=== PATIENT | female | born 1960 | race Caucasian/White ===

== ENCOUNTER 2017-10-29 12:59 | Inpatient (IN) | payer MEDICARE, OTHER ==
[~2017-10-29] VITALS: Ht 154.9 cm; Wt 113.2 kg
[~2017-10-29 12:59] MED LIST: LATU80TA PO; PALI117P IM
[2017-10-29 13:00] VITALS: BP 146/80; PULSE 75; RESP 18; TEMP 98.4; O2SAT 98
--- NOTE | 2017-10-29 13:21 | PD ---
HPI Chief Complaint: Psychiatric Symptoms Time Seen by Provider: 13:08 Travel History International Travel<30 days: No Contact w/Intl Traveler<30days: No Traveled to known affect area: No History of Present Illness HPI This is a 57-year-old female who presents with her son for evaluation. Reportedly she has a history of schizophrenia. Over the past several months she has been using her Geodon only intermittently. She reports that she no longer wants to take it because she feels fine and does not believe that she has any illness. The son and his have been concerned about her behavior over the past few weeks. They report that she has been acting bizarre, paranoid , impulsive, wandering out of the house randomly, unusual euphoric mood. The patient sees a psychiatrist and [place]. The patient reports that she is willing to stay for psychiatric evaluation but declines medication. The patient denies any acute medical complaints. She reports that she had an injury to her back in the 90s and has had occasional muscle spasms since then but none currently. No other complaints. [facility] Past Medical History Anxiety: No Depression: No Cardiovascular Problems: No Endocrine: No Genitourinary: No Immune Disorder: No Musculoskeletal: No Neurologic: No Psychiatric: Yes Reproductive: No Respiratory: No Social History Tobacco Use: No Substance Use: No Allergies-Medications (Allergen,Severity, Reaction): Coded Allergies: No Known Allergies (Unverified Adverse Reaction, Unknown, 10/29/17) Reported Meds & Prescriptions Reported Meds & Active Scripts Active Reported Spironolactone 25 Mg Tab 25 Mg PO DAILY Metformin (Metformin HCl) 500 Mg Tab 500 Mg PO BID Lasix (Furosemide) 40 Mg Tab 40 Mg PO BID Lovastatin 20 Mg Tab 20 Mg PO DAILY Levothyroxine (Levothyroxine Sodium) 75 Mcg Tab 75 Mcg PO DAILY Metoprolol Succinate ER 24 HR (Metoprolol Succinate) 25 Mg Tab 25 Mg PO DAILY Trazodone (Trazodone HCl) 50 Mg Tab 50 Mg PO HS Geodon (Ziprasidone) 80 Mg Cap 80 Mg PO BID Review of Systems Except as stated in HPI: all other systems reviewed are Neg Physical Exam Narrative GENERAL: Well-developed well-nourished female in no acute distress SKIN: Warm and dry. HEAD: Atraumatic. Normocephalic. EYES: Pupils equal and round. No scleral icterus. No injection or drainage. ENT: No nasal bleeding or discharge. Mucous membranes pink and moist. NECK: Trachea midline. No JVD. CARDIOVASCULAR: Regular rate and rhythm. No murmur appreciated. RESPIRATORY: No accessory muscle use. Clear to auscultation. Breath sounds equal bilaterally. GASTROINTESTINAL: Abdomen soft, non-tender, nondistended. Hepatic and splenic margins not palpable. MUSCULOSKELETAL: No obvious deformities. No clubbing. No cyanosis. No edema. NEUROLOGICAL: Awake and alert. No obvious cranial nerve deficits. Motor grossly within normal limits. Normal speech. PSYCHIATRIC: Hyperthymic mood; insight and judgment appear limited. Data Data Last Documented VS Vital Signs Date Time Temp Pulse Resp B/P (MAP) Pulse Ox O2 Delivery O2 Flow Rate FiO2 10/29/17 13:00 98.4 75 18 146/80 (102) 98 Orders Orders Complete Blood Count With Diff (10/29/17 13:19) Comprehensive Metabolic Panel (10/29/17 13:19) Psych Screen (10/29/17 13:19) Drug Screen, Random Urine (10/29/17 13:19) Alcohol (Ethanol) (10/29/17 13:19) Labs Laboratory Tests Test 10/29/17 13:55 10/29/17 14:00 White Blood Count 14.2 TH/MM3 Red Blood Count 4.01 MIL/MM3 Hemoglobin 12.9 GM/DL Hematocrit 37.8 % Mean Corpuscular Volume 94.3 FL Mean Corpuscular Hemoglobin 32.2 PG Mean Corpuscular Hemoglobin Concent 34.2 % Red Cell Distribution Width 13.1 % Platelet Count 310 TH/MM3 Mean Platelet Volume 7.9 FL Neutrophils (%) (Auto) 69.6 % Lymphocytes (%) (Auto) 23.4 % Monocytes (%) (Auto) 5.0 % Eosinophils (%) (Auto) 1.6 % Basophils (%) (Auto) 0.4 % Neutrophils # (Auto) 9.9 TH/MM3 Lymphocytes # (Auto) 3.3 TH/MM3 Monocytes # (Auto) 0.7 TH/MM3 Eosinophils # (Auto) 0.2 TH/MM3 Basophils # (Auto) 0.1 TH/MM3 CBC Comment DIFF FINAL Differential Comment Blood Urea Nitrogen 14 MG/DL Creatinine 0.94 MG/DL Random Glucose 144 MG/DL Total Protein 7.4 GM/DL Albumin 3.1 GM/DL Calcium Level 8.5 MG/DL Alkaline Phosphatase 94 U/L Aspartate Amino Transf (AST/SGOT) 27 U/L Alanine Aminotransferase (ALT/SGPT) 36 U/L Total Bilirubin 0.3 MG/DL Sodium Level 137 MEQ/L Potassium Level 4.2 MEQ/L Chloride Level 102 MEQ/L Carbon Dioxide Level 28.1 MEQ/L Anion Gap 7 MEQ/L Estimat Glomerular Filtration Rate 61 ML/MIN Ethyl Alcohol Level LESS THAN 3 MG/DL Urine Opiates Screen NEG Urine Barbiturates Screen NEG Urine Amphetamines Screen NEG Urine Benzodiazepines Screen NEG Urine Cocaine Screen NEG Urine Cannabinoids Screen NEG MDM Medical Decision Making Medical Screen Exam Complete: Yes Emergency Medical Condition: Yes Medical Record Reviewed: Yes Differential Diagnosis Schizophrenia, medication noncompliance, acute psychosis, Narrative Course The patient is agreeable to psychiatric evaluation but she declines medication at this time. Mental health screening discussed with the patient. Psychiatric screen ordered. The patient is medically cleared. Diagnosis Primary Impression: Noncompliance with medication regimen Additional Impression: Schizophrenia Jaren Waggoner Oct 29, 2017 13:21
[2017-10-29] MEDS ORDERED: GEOD80CA PO (13:33)
[2017-10-29] MEDS ORDERED: SPIR25TA PO (13:49)
[2017-10-29] MEDS ORDERED: FURO1TAB60 PO (13:49)
[2017-10-29] MEDS ORDERED: METF500T PO (13:49)
[2017-10-29] MEDS ORDERED: TRAZ50TA12 PO (13:49)
[2017-10-29] MEDS ORDERED: LOVA20TA PO (13:49)
[2017-10-29] MEDS ORDERED: LEVO75TA3 PO (13:49)
[2017-10-29] MEDS ORDERED: METO1TAB42 PO (13:49)
[2017-10-29 14:10] LABS: AUTOMATED NEUTROPHIL # 9.9 TH/MM3 (1.8-7.7); BASOPHIL # 0.1 TH/MM3 (0-0.2); BASOPHIL % 0.4 % (0.0-2.0); EOSINOPHIL # 0.2 TH/MM3 (0-0.4); EOSINOPHIL % 1.6 % (0.0-4.0); HEMATOCRIT 37.8 % (35.0-46.0); HEMOGLOBIN 12.9 GM/DL (11.6-15.3); LYMPH % 23.4 % (9.0-44.0); LYMPHOCYTE # 3.3 TH/MM3 (1.0-4.8); MEAN CELL VOLUME 94.3 FL (80.0-100.0); MEAN CORPUSCULAR HEMOGLOBIN 32.2 PG (27.0-34.0); MEAN CORPUSCULAR HGB CONC 34.2 % (32.0-36.0); MEAN PLATELET VOLUME 7.9 FL (7.0-11.0); MONOCYTE # 0.7 TH/MM3 (0-0.9); NEUT % 69.6 % (16.0-70.0); PLATELET COUNT 310 TH/MM3 (150-450); RED BLOOD COUNT 4.01 MIL/MM3 (4.00-5.30); RED CELL DISTRIBUTION WIDTH 13.1 % (11.6-17.2); WHITE BLOOD COUNT 14.2 TH/MM3 (4.0-11.0)
[2017-10-29 14:28] LABS: ALKALINE PHOSPHATASE 94 U/L (45-117); TOTAL BILIRUBIN ADULT 0.3 MG/DL (0.2-1.0); TOTAL PROTEIN 7.4 GM/DL (6.4-8.2)
[2017-10-29 14:30] LABS: ALBUMIN 3.1 GM/DL (3.4-5.0); ALT (GPT) 36 U/L (10-53); BICARBONATE 28.1 MEQ/L (21.0-32.0); BLOOD UREA NITROGEN 14 MG/DL (7-18); CALCIUM 8.5 MG/DL (8.5-10.1); CHLORIDE 102 MEQ/L (98-107); CREATININE 0.94 MG/DL (0.50-1.00); GLOMERULAR FILTRATION RATE 61 ML/MIN (>89); GLUCOSE,RANDOM 144 MG/DL (74-106); SODIUM (NA) 137 MEQ/L (136-145)
[2017-10-29 14:31] LABS: AST (GOT) 27 U/L (15-37)
[2017-10-29] MEDS ORDERED: diphenhydrAMINE HCL 50 MG/ML VIAL IM PRN (19:45)
[2017-10-29] MEDS ORDERED: LORazepam 1 MG TAB PO PRN (19:45)
[2017-10-29] MEDS ORDERED: MAGNESIUM HYDROXIDE SUSP 30 ML CUP PO PRN (19:45)
[2017-10-29] MEDS ORDERED: ACETAMINOPHEN 325 MG TAB PO PRN (19:45)
[2017-10-29] MEDS ORDERED: ALUMINUM/MAGNESIUM/SIMETH 30 ML CUP PO PRN (19:45)
[2017-10-29] MEDS ORDERED: LORazepam 2 MG/ML VIAL IM PRN (19:45)
[2017-10-29] MEDS: ZIPRASIDONE HCL 80 MG CAP PO SCH (21:43)
[2017-10-29] MEDS: traZODone HCL 50 MG TAB PO SCH (21:43)
[2017-10-29] MEDS: metFORMIN HCL 500 MG TAB PO SCH (21:43)
[2017-10-29] MEDS: FUROSEMIDE 40 MG TAB PO SCH (21:43)
[2017-10-29 22:38] VITALS: BP 157/82; PULSE 83; RESP 18; TEMP 97.5; O2SAT 95
[2017-10-30] MEDS: LEVOTHYROXINE SODIUM 75 MCG TAB PO SCH (05:39)
[2017-10-30 05:44] VITALS: BP 116/66; PULSE 86; RESP 18; TEMP 97
[2017-10-30] MEDS: metFORMIN HCL 500 MG TAB PO SCH ×2 (09:24→17:33)
[2017-10-30] MEDS: FUROSEMIDE 40 MG TAB PO SCH (09:24)
[2017-10-30] MEDS: ZIPRASIDONE HCL 80 MG CAP PO SCH ×2 (09:24→20:34)
[2017-10-30] MEDS: PRAVASTATIN SOD 20 MG TAB PO SCH (09:26)
[2017-10-30] MEDS: SPIRONOLACTONE 25 MG TAB PO SCH (09:26)
[2017-10-30] MEDS: METOPROLOL SUCCINATE 25 MG EXTENDED RELEASE TAB PO SCH (09:26)
[2017-10-30 09:35] LABS: BICARBONATE 27.5 MEQ/L (21.0-32.0); BLOOD UREA NITROGEN 15 MG/DL (7-18); CALCIUM 8.6 MG/DL (8.5-10.1); CHLORIDE 99 MEQ/L (98-107); CREATININE 1.01 MG/DL (0.50-1.00); GLOMERULAR FILTRATION RATE 56 ML/MIN (>89); GLUCOSE,RANDOM 156 MG/DL (74-106); SODIUM (NA) 137 MEQ/L (136-145)
[2017-10-30 09:37] LABS: CHOLESTEROL 184 MG/DL (120-200); TRIGLYCERIDES 147 MG/DL (42-150)
[2017-10-30 09:41] LABS: CHOLESTEROL/ HDL RATIO 3.43 RATIO; HDL CHOLESTEROL 53.6 MG/DL (40.0-60.0); LDL CHOLESTEROL 101 MG/DL (0-99)
[2017-10-30 10:17] LABS: HEMOGLOBIN A1C 7.1 % (4.3-6.0)
[2017-10-30] MEDS: ARIPiprazole 5 MG TAB PO SCH (11:30)
[2017-10-30] MEDS ORDERED: DEXTROSE 50% IN WATER 50 ML VIAL(D50) IV PUSH PRN (11:30)
[2017-10-30] MEDS ORDERED: GLUCAGON 1 MG/ML VIAL OTHER PRN (11:30)
--- NOTE | 2017-10-30 11:58 | MH ---
cc: NAVIN THOMPSON DATE OF ADMISSION: 10/29/2017 ADMISSION DIAGNOSIS 1. Schizoaffective disorder, bipolar type, F25.0. LEGAL STATUS The patient is presently capacitated to consent for admission and for medications/treatment voluntary status. CHIEF COMPLAINT: Carleen HISTORY OF PRESENT ILLNESS Ms. Chopra is a 57-year-old female with a history of schizoaffective disorder who presented to the emergency department voluntarily with her son for psychiatric evaluation. Reviewing the ED provider notes, I see that the patient has been only intermittently adherent with her Geodon and the son and son's were concerned about the patient's behavior over the last several weeks. Reviewing the electronic medical record, I note the patient was admitted most recently [place] [address] Obrien. The patient is seen and examined with nurse, chart reviewed. Case discussed with nursing staff. On my examination today, the patient presents with elevated mood. She tells me, "I used to see things in my house, things diabolical. I used to throw things away: Shoes, clothes. I have learned not to throw things away. If I see something spiritual, I put my hand over it and pray." Mood is "So good, so happy." Speech is somewhat rapid. The patient says that she feels at peace. She says that she is sleeping more than usual. Some loosening of associations noted. She endorses hearing the word of God but denies any visual hallucinations. She denies any suicidal or homicidal ideation. No depressive symptoms elicited. Besides a zoroastrian preoccupation, no jessie delusional material. Remainder of the psychiatric ROS is negative. No physical complaints at this time. PAST PSYCHIATRIC HISTORY The patient has a history of schizoaffective disorder. She follows with a psychiatric nurse practitioner but missed her October 03 appointment. She takes Geodon and trazodone on an outpatient basis but is only intermittently adherent with these medications. Her most recent psychiatric admission was reportedly here at [place]. She denies a history of suicide attempts. FAMILY HISTORY The patient denies a family history of mental illness. CHEMICAL DEPENDENCY HISTORY The patient denies any abuse of drugs or alcohol. SOCIAL HISTORY The patient reports that she lives alone. She has no pets. She has a son. She is but from her . She has some college education. 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 She denies any access to guns or firearms. She is a Pentocostal. PAST MEDICAL HISTORY 1. Diabetes mellitus 2. Hypertension. MEDICATIONS 1. Lovastatin 20 mg daily. 2. Metoprolol ER 25 mg daily. 3. Spirolactone 25 mg daily. 4. Trazodone 50 mg at bedtime. 5. Geodon 80 mg twice daily. 6. Furosemide 40 mg twice daily. 7. Metformin fifth 500 mg twice daily. 8. Synthroid 75 mcg daily. ALLERGIES No known allergies. REVIEW OF SYSTEMS Except as noted in the HPI, this is negative. PHYSICAL EXAMINATION VITAL SIGNS: Temperature 97, pulse 86, respirations 18, blood pressure 116/66, pulse oximetry 95% on room air when last checked. Physical examination was completed by the ED provider. On my examination today, the patient appears to be in no acute physical distress. No motor abnormalities noted. LABORATORIES REVIEWED CBC reveals leukocytosis with a white blood cell count 14.2. CMP reveals decreased GFR at 56 and hyperglycemia as expected. Urine toxicology negative. Alcohol level undetectable. MENTAL STATUS EXAM The patient is in hospital attire. She is fairly well-groomed and maintaining basic hygiene. She is awake, alert and oriented x4. No motor abnormalities noted. Speech is somewhat rapid and difficult to interrupt. Language and fund of knowledge average. Focus and concentration impaired. Memory grossly intact on clinical exam. Mood is elevated and affect is expansive. Thought process with some loosening of associations. Orthodox preoccupation present. No delusions otherwise. Hearing the word of God but no visual or other hallucinatory material. Denies suicidal or homicidal ideation but it is unclear that she is reliable to contract for safety. Insight and judgment are presently fair at best. ASSESSMENT A 57-year-old female with psychiatric history as detailed above who presents voluntarily for psychiatric admission. On my examination today, the patient appears to be in the manic phase of an underlying schizoaffective disorder. She does admit to non-adherence with her psychotropic medications. Given this issue with non-adherence, I think a long-acting injectable medication is indicated. Given her body habitus and metabolic comorbidities, I think one of the relatively weight neutral antipsychotics would be ideal. I think a trial of Abilify as appropriate and I have discussed the risks, benefits and alternatives with the patient in some detail. She is agreeable to a trial of Abilify. I will plan to admit the patient to the inpatient psychiatric unit for safety, observation and stabilization. PLAN 1. Admit inpatient, voluntary status. 2. Check EKG for QTC, check TSH, check CBC to follow up leukocytosis and check BMP to follow up decreased GFR. 3. Encourage fluids. 4. Check a urinalysis. 5. I will initiate Abilify 5 mg daily for the management of the patient's acute mood episode with plans to titrate to effect and to consider long-acting injectable Abilify Maintena. 6. I will continue the patient's general medical medications except, in light of her decreased GFR, I will hold her furosemide and metformin. 7. I will consult the hospitalist for further management. 8. Accu-Cheks and sliding scale. 9. Ativan as needed for anxiety. 10. Benadryl as needed for EPS. 11. Vitals every shift. 12. Counselor to see. 13. Disposition planning. ESTIMATED LENGTH OF STAY 5-7 days. Navin Thompson DC/AURY /11:09 AM /11:21 AM MTDKristina
[2017-10-30] MEDS: INSULIN ASPART SUPPLEMENTAL SCALE SQ SCH ×3 (12:00→20:37)
[2017-10-30 13:39] LABS: AUTOMATED NEUTROPHIL # 8.7 TH/MM3 (1.8-7.7); BASOPHIL # 0.1 TH/MM3 (0-0.2); BASOPHIL % 0.6 % (0.0-2.0); EOSINOPHIL # 0.2 TH/MM3 (0-0.4); EOSINOPHIL % 1.2 % (0.0-4.0); HEMATOCRIT 43.4 % (35.0-46.0); HEMOGLOBIN 14.4 GM/DL (11.6-15.3); LYMPH % 25.5 % (9.0-44.0); LYMPHOCYTE # 3.3 TH/MM3 (1.0-4.8); MEAN CELL VOLUME 93.9 FL (80.0-100.0); MEAN CORPUSCULAR HEMOGLOBIN 31.1 PG (27.0-34.0); MEAN CORPUSCULAR HGB CONC 33.1 % (32.0-36.0); MEAN PLATELET VOLUME 8.3 FL (7.0-11.0); MONO % 4.8 % (0.0-8.0); MONOCYTE # 0.6 TH/MM3 (0-0.9); NEUT % 67.9 % (16.0-70.0); PLATELET COUNT 297 TH/MM3 (150-450); RED BLOOD COUNT 4.63 MIL/MM3 (4.00-5.30); RED CELL DISTRIBUTION WIDTH 13.3 % (11.6-17.2); WHITE BLOOD COUNT 12.8 TH/MM3 (4.0-11.0)
[2017-10-30 15:02] VITALS: BP 104/59; PULSE 90; RESP 18; TEMP 97.6; O2SAT 96
[2017-10-30] MEDS ORDERED: TORSEMIDE 5 MG TAB PO SCH (18:00)
[2017-10-30] MEDS: traZODone HCL 50 MG TAB PO SCH (20:34)
--- NOTE | 2017-10-30 23:17 | PD.CONS ---
HPI Service [facility] Hospitalists Consult Requested By Psychiatry. Reason for Consult Medical management. Primary Care Physician Unknown Diagnoses: (1) Diabetes mellitus (2) Schizophrenia History of Present Illness Ms. Chopra is a pleasant 57 year old female with a history of schizophrenia who was admitted to psychiatry unit due to paranoid, impulsive, bizarre behavior noticed by her son and his . Patient denies any acute concerns at the time of this interview. Hospitalist service was consulted for medical management and for an input regarding lasix and Metformin use in the background of reduced GFR. Patient is currently in good, cooperative mood. No chest pain, SOB, fever, chills. No changes in bowel or bladder habits. Review of Systems Except as stated in HPI: all other systems reviewed are Neg Past Family Social History Allergies: Coded Allergies: No Known Allergies (Unverified Allergy, Unknown, 10/29/17) Past Medical History Diabetes mellitus Schizophrenia bilateral lower ext edema. Probable CHF Hypothyroidism. Past Surgical History Cholecystectomy C- Section Breast bx Reported Medications Spironolactone 25 Mg Tab 25 Mg PO DAILY Metformin (Metformin HCl) 500 Mg Tab 500 Mg PO BID Lasix (Furosemide) 40 Mg Tab 40 Mg PO BID Lovastatin 20 Mg Tab 20 Mg PO DAILY Levothyroxine (Levothyroxine Sodium) 75 Mcg Tab 75 Mcg PO DAILY Metoprolol Succinate ER 24 HR (Metoprolol Succinate) 25 Mg Tab 25 Mg PO DAILY Trazodone (Trazodone HCl) 50 Mg Tab 50 Mg PO HS Geodon (Ziprasidone) 80 Mg Cap 80 Mg PO BID Family History Mother and father had cancer, does not know specifics. Social History Denies using tobacco, alcohol, illicit drugs. Physical Exam Vital Signs Vital Signs Date Time Temp Pulse Resp B/P (MAP) Pulse Ox O2 Delivery O2 Flow Rate FiO2 10/30/17 15:02 97.6 90 18 104/59 (74) 96 10/30/17 05:44 97.0 86 18 116/66 (83) Physical Exam GENERAL: This is a well-nourished, well-developed patient, in no apparent distress. SKIN: No rashes, ecchymoses or lesions. Warm and dry. HEAD: Atraumatic. Normocephalic. No temporal or scalp tenderness. EYES: Pupils equal round and reactive. No injection or drainage. ENT: Nose without bleeding, purulent drainage or septal hematoma. Airway patent. NECK: Trachea midline. No lymphadenopathy. Supple, nontender, no meningeal signs. CARDIOVASCULAR: Regular rate and rhythm without murmurs, gallops, or rubs. No JVD. RESPIRATORY: Clear to auscultation. Breath sounds equal bilaterally. No wheezes , rales, or rhonchi. GASTROINTESTINAL: Abdomen soft, non-tender, nondistended. No guarding. MUSCULOSKELETAL: Extremities without clubbing, cyanosis. 1+ edema in lower ext. NEUROLOGICAL: Awake and alert. Cranial nerves II through XII intact. No focal neurological deficits. Normal speech. Laboratory Laboratory Tests Test 10/30/17 08:20 White Blood Count 12.8 Red Blood Count 4.63 Hemoglobin 14.4 Hematocrit 43.4 Mean Corpuscular Volume 93.9 Mean Corpuscular Hemoglobin 31.1 Mean Corpuscular Hemoglobin Concent 33.1 Red Cell Distribution Width 13.3 Platelet Count 297 Mean Platelet Volume 8.3 Neutrophils (%) (Auto) 67.9 Lymphocytes (%) (Auto) 25.5 Monocytes (%) (Auto) 4.8 Eosinophils (%) (Auto) 1.2 Basophils (%) (Auto) 0.6 Neutrophils # (Auto) 8.7 Lymphocytes # (Auto) 3.3 Monocytes # (Auto) 0.6 Eosinophils # (Auto) 0.2 Basophils # (Auto) 0.1 CBC Comment DIFF FINAL Differential Comment Blood Urea Nitrogen 15 Creatinine 1.01 Random Glucose 156 Calcium Level 8.6 Sodium Level 137 Potassium Level 3.8 Chloride Level 99 Carbon Dioxide Level 27.5 Anion Gap 11 Estimat Glomerular Filtration Rate 56 Hemoglobin A1c 7.1 Triglycerides Level 147 Cholesterol Level 184 LDL Cholesterol 101 HDL Cholesterol 53.6 Cholesterol/HDL Ratio 3.43 Thyroid Stimulating Hormone 3rd Gen 5.170 Result Diagram: 10/30/17 0820 10/30/17 0820 Assessment and Plan Problem List: (1) Diabetes mellitus ICD Code: E11.9 - Type 2 diabetes mellitus without complications (2) Schizophrenia ICD Code: F20.9 - Schizophrenia, unspecified Status: Acute Assessment and Plan Ms. Chopra is a 57 year old female with a history of schizophrenia, diabetes mellitus, hypothyroidism who was admitted to psychiatry unit due to bizarre, paranoid behavior. Hospitalist service was consulted for medical management. - Schizophrenia - management per psychiatry - Diabetes mellitus - We can continue Metformin for diabetes since GFR is > 45. - Blood glucose within reasonable range. Will d/c frequent glucose check. - Bilateral lower ext edema - Possible CHF, chronic. - Based on patient's meds - Metoprolol succinate, lasix, Aldactone - patient' s lower ext edema is likely due to CHF. - Will continue Metoprolol, Aldactone and Torsemide 5mg Qday. - Currently not in decompensation. - Hypothyroidism - Patient has not been on Levothyroxine for a while. This may explain her elevated TSH - continue Levothyroxine 75mcg Qday. Full code. Ambulation. Thank you for the consult. We will continue to follow this patient with you. Shayan Dyer DO Oct 30, 2017 23:17
[2017-10-31] MEDS: LEVOTHYROXINE SODIUM 75 MCG TAB PO SCH (05:30)
[2017-10-31 05:59] VITALS: BP 133/97; PULSE 88; RESP 18; TEMP 97.7; O2SAT 97
[2017-10-31] MEDS: INSULIN ASPART SUPPLEMENTAL SCALE SQ SCH ×4 (08:00→20:23)
[2017-10-31] MEDS: METOPROLOL SUCCINATE 25 MG EXTENDED RELEASE TAB PO SCH (08:34)
[2017-10-31] MEDS: PRAVASTATIN SOD 20 MG TAB PO SCH (08:34)
[2017-10-31] MEDS: ZIPRASIDONE HCL 80 MG CAP PO SCH ×3 (08:35→20:22)
[2017-10-31] MEDS: TORSEMIDE 5 MG TAB PO SCH ×2 (08:35→09:00)
[2017-10-31] MEDS: metFORMIN HCL 500 MG TAB PO SCH ×2 (08:35→08:40)
[2017-10-31] MEDS: SPIRONOLACTONE 25 MG TAB PO SCH ×2 (08:35→09:00)
[2017-10-31] MEDS: ARIPiprazole 5 MG TAB PO SCH ×2 (08:35→09:00)
--- NOTE | 2017-10-31 09:40 | PD.TTN ---
Patient Problems 1. Discharge planning 2. Medication compliance 3. Knowledge deficit 4. Lack of coping skills Progress Toward Goals Provider Present: Dr. Cayla Thompson Provider Input: Patient has been started on abilify and will be titrating regiment. Cooperative with medications and denies side effects and denies suicidal ideations. Nurse(s) Input: Patient has been compliant with medications but continues to have latter-day preoccupations. Patient stated "If I take these meds, God will kill me." Otherwise patient is seen in day room and is oriented. Psychiatric Counselors Present: PATRICIA Harris Psych Therapist Input: Patient notes to be latter-day preoccupied but is cooperative and pleasant. Patient is denying suicidial/homicidal ideations but does ellude to hallucinations. patient will be able to return home with possible home health upon stablization. Group Spec/RT/OT/BRIGGS Present: BRIGITTE Dubose Group Spec/RT/OT/BRIGGS Input: Patient participates in group and is easily redirectable. Patient is appropriate but does continue to have some latter-day preoccupations. Natividad North Oct 31, 2017 09:40
[2017-10-31 09:43] LABS: CREATININE 0.99 MG/DL (0.50-1.00)
[2017-10-31 10:02] LABS: BICARBONATE 27.2 MEQ/L (21.0-32.0)
--- NOTE | 2017-10-31 11:48 | HHI.PYPN ---
Subjective Remarks Patient seen and examined with nurse. Chart reviewed. Case discussed with nurse who reports patient refused her medications this morning. Patient has been no behavioral problem otherwise on the unit. Case discussed in treatment team. On my examination today, patient is in good spirits. Mood remains a little elevated and affect is somewhat expansive. She continues to display a buddhist preoccupation, although this is not clearly delusional in nature. She describes her mood as "very good, very good." She says that she refused medications because she feels she does not need them. I provide psychoeducation regarding the purpose of her psychotropic medications, but patient remains resistant to taking them. She is appreciative of the time she has had on the unit noting that she "like[s] the therapy, it's like a vacation. " However, she is hopeful for discharge soon. She denies SI/HI. She denies AVH. She is presently calm. No physical complaints. Review of Systems Except as stated in HPI: all other systems reviewed are Neg Mental Status Examination Appearance: Appropriate, Other (In hospital attire. Maintaining basic hygiene. ) Consciousness: Alert Orientation: x4 Motor Activity: Normal gait, Other (no motor abnormalities noted) Speech: Unremarkable Language: Adequate Fund of Knowledge: Adequate Attention and Concentration: Adequate Memory: Unremarkable Mood: Other (mildly elevated) Affect: Other (mildly expansive) Thought Process & Associations: Intact, Logical, Linear Thought Content: Appropriate Hallucination Type: None Delusion Type: None Suicidal Ideation: No Suicidal Plan: No Suicidal Intention: No Homicidal Ideation: No Homicidal Plan: No Homicidal Intention: No Insight: Poor Judgment: Poor Results Labs Test 10/31/17 08:20 Blood Urea Nitrogen 17 MG/DL Creatinine 0.99 MG/DL Random Glucose 146 MG/DL Calcium Level 9.0 MG/DL Sodium Level 137 MEQ/L Potassium Level 4.3 MEQ/L Chloride Level 99 MEQ/L Carbon Dioxide Level 27.2 MEQ/L Anion Gap 11 MEQ/L Estimat Glomerular Filtration Rate 57 ML/MIN B-Type Natriuretic Peptide 13 PG/ML Labs reviewed. GFR stable. Vitals/IOs Vital Signs Date Time Temp Pulse Resp B/P (MAP) Pulse Ox O2 Delivery O2 Flow Rate FiO2 10/31/17 05:59 97.7 88 18 133/97 (109) 97 Assessment & Plan Problem List: (1) Schizoaffective disorder, bipolar type ICD Codes: F25.0 - Schizoaffective disorder, bipolar type Assessment & Plan Continue to offer Abilify. Patient remains capacitated to consent or decline medications at this time. I have emphasized to the patient that one of the major purposes of this medication is to prevent further decompensation, but the patient continues to insist that she does not need psychotropics. There has been no evidence of behavioral disturbance or suicidality/homicidality on the unit, and she is attending to her ADLs. Hospitalist input noted and appreciated. Continue other medications and care as ordered. Justification for Cont. Inpt. Monitoring for impairment in safety, none noted. Discharge Planning I am hopeful that the patient can be convinced to accept psychotropic medication , She is not presently so decompensated that it might be provided to her over her objection. She is asking about discharge, and if she should force the issue (e.g. by completing ROR), I am not sure that we would have any basis to keep her over her objection. Should she insist on leaving, she would do so against my advice. Request HC Surrog/Guard Advoc?: No Andrew Thompson MD Oct 31, 2017 11:48
--- NOTE | 2017-10-31 14:04 | EKG ---
Date Performed: 10/30/2017 Time Performed: 16:08:37 PTAGE: 57 years EKG: Sinus rhythm RIGHT BUNDLE BRANCH BLOCK ABNORMAL ECG NO PREVIOUS TRACING DOCTOR: Alexi Britt Interpretating Date/Time 10/31/2017 14:02:25
--- NOTE | 2017-10-31 14:07 | HHI.PR ---
Subjective Remarks Follow-up visit problem CHF, hypothyroidism, DM. Patient seen and examined today. Patient was noted playing basketball. States she is very happy and feeling fine. Patient noted to refuse medications today. Patient was asked why she refused medications today. Patient states that "I don't need them." Discussed with patient importance of medication to continue. States "oh, I didn 't know it will help me. Okay, I will take it then." Denies pain and discomfort. Denies SOB/ dyspnea. Denies chest pain, palpitations, headaches, dizziness. Denies fevers, chills, n/v/d. Denies dysuria. Objective Vitals Vital Signs Date Time Temp Pulse Resp B/P (MAP) Pulse Ox O2 Delivery O2 Flow Rate FiO2 10/31/17 05:59 97.7 88 18 133/97 (109) 97 10/30/17 15:02 97.6 90 18 104/59 (74) 96 Result Diagram: 10/30/17 0820 10/31/17 0820 Objective Remarks GENERAL: This is an obese, well-developed patient, in no apparent distress. SKIN: Warm and dry. HEENT: Normocephalic. Pupils equal round and reactive. Nose without bleeding. Airway patent. NECK: Trachea midline. No JVD. Supple. CARDIOVASCULAR: Regular rate and rhythm without murmurs, gallops, or rubs. RESPIRATORY: Clear to auscultation. Breath sounds equal bilaterally. No wheezes , rales, or rhonchi. GASTROINTESTINAL: Abdomen soft, non-tender, nondistended. Bowel Sounds normoactive x4. MUSCULOSKELETAL: Extremities without clubbing, cyanosis. Bilateral lower extremity plus +1 edema. NEUROLOGICAL: Awake and alert. Oriented to place, person. No focal neuro deficit. Moves all extremities. Normal speech. A/P Problem List: (1) Diabetes mellitus ICD Code: E11.9 - Type 2 diabetes mellitus without complications (2) Schizophrenia ICD Code: F20.9 - Schizophrenia, unspecified Status: Acute Assessment and Plan Patient is a 57 year old female with a history of schizophrenia, diabetes mellitus, hypothyroidism who was admitted to psychiatry unit due to bizarre, paranoid behavior. Hospitalist service was consulted for medical management. Schizophrenia - management per psychiatry Diabetes mellitus - Continue Metformin for diabetes since GFR is > 45. - Blood glucose within reasonable range. D/c frequent glucose check. - Refused to take the medication today. Discussed importance of taking medication and she was Amenable to taking medication when when spoken to. Need to be reeducated at all times. May have compliance issue due to schizophrenia Bilateral lower ext edema Possible CHF, chronic. - Based on patient's meds - Metoprolol succinate, lasix, Aldactone - patient' s lower ext edema is likely due to CHF. - Continue Metoprolol, Aldactone and Torsemide 5mg Qday. - Currently not in decompensation. - Continue reeducation and monitor for compliance Hypothyroidism - Patient has not been on Levothyroxine for a while. This may explain her elevated TSH - continue Levothyroxine 75mcg Qday. DVT prop Ambulation. Cornell Oliveira Oct 31, 2017 14:07
[2017-10-31 18:00] VITALS: BP 166/85; PULSE 95; RESP 18; TEMP 97.4; O2SAT 99
[2017-10-31] MEDS: traZODone HCL 50 MG TAB PO SCH (20:22)
[2017-11-01 05:46] VITALS: BP 130/71; PULSE 92; RESP 18; TEMP 97.8; O2SAT 98
[2017-11-01] MEDS: LEVOTHYROXINE SODIUM 75 MCG TAB PO SCH (06:00)
[2017-11-01] MEDS: INSULIN ASPART SUPPLEMENTAL SCALE SQ SCH ×4 (08:00→20:44)
[2017-11-01] MEDS: PRAVASTATIN SOD 20 MG TAB PO SCH (09:00)
[2017-11-01] MEDS: METOPROLOL SUCCINATE 25 MG EXTENDED RELEASE TAB PO SCH (09:00)
[2017-11-01] MEDS: TORSEMIDE 5 MG TAB PO SCH (09:00)
[2017-11-01] MEDS: SPIRONOLACTONE 25 MG TAB PO SCH (09:00)
[2017-11-01] MEDS: ARIPiprazole 5 MG TAB PO SCH (09:00)
[2017-11-01] MEDS: metFORMIN HCL 500 MG TAB PO SCH ×2 (09:00→18:24)
[2017-11-01] MEDS: ZIPRASIDONE HCL 80 MG CAP PO SCH ×2 (09:00→20:44)
--- NOTE | 2017-11-01 11:56 | HHI.PYPN ---
Subjective Remarks Patient seen and examined with counselor. Chart reviewed. I do note the patient accepted her Abilify this morning. She has completed a right of release set to around noontime today. Case discussed with nursing staff who reports patient remains somewhat grandiose. Case discussed with counselor. On my examination today, the patient seems less elevated/expansive. She alludes in a somewhat dramatic fashion to a possible trauma history, which reportedly happened when she lived in [facility] and [place]. She says that she would like to discuss this issue further throughout the hospital stay. Today she is agreeable to remaining on the unit and has rescinded the right of release prior to its expiration. She denies side effects from medications. She is agreeable to titration of the Abilify. No physical complaints. Review of Systems ROS Limitations: Poor Historian Except as stated in HPI: all other systems reviewed are Neg Mental Status Examination Appearance: Appropriate Consciousness: Alert Orientation: x4 Motor Activity: Normal gait, Other (no abnormal motor movements noted) Speech: Unremarkable Language: Adequate Fund of Knowledge: Adequate Attention and Concentration: Adequate Memory: Unremarkable Mood: Other (somewhat somber today) Affect: Blunt Thought Process & Associations: Intact, Logical, Linear Thought Content: Appropriate Hallucination Type: None Delusion Type: Other (mild grandiosity) Suicidal Ideation: No Suicidal Plan: No Suicidal Intention: No Homicidal Ideation: No Homicidal Plan: No Homicidal Intention: No Insight: Poor Judgment: Poor Results Labs Labs reviewed. Vitals/IOs Vital Signs Date Time Temp Pulse Resp B/P (MAP) Pulse Ox O2 Delivery O2 Flow Rate FiO2 11/01/17 05:46 97.8 92 18 130/71 (90) 98 Assessment & Plan Problem List: (1) Schizoaffective disorder, bipolar type ICD Codes: F25.0 - Schizoaffective disorder, bipolar type Assessment & Plan Titrate Abilify to 10 mg daily to target residual mood/psychotic symptoms. Could consider Abilify Maintena. To consider tapering/discontinuing Geodon. Hospitalist input noted and appreciated. Continue to monitor on the inpatient unit. Continue other medications and care as ordered. Justification for Cont. Inpt. Medication changes. Risk for decompensation in less restrictive environment. Discharge Planning Pending psychiatric stabilization Request HC Surrog/Guard Advoc?: No Andrew Thompson MD Nov 01, 2017 11:56
[2017-11-01 16:50] VITALS: BP 152/78; PULSE 94; RESP 18; TEMP 97.9; O2SAT 97
[2017-11-01] MEDS: traZODone HCL 50 MG TAB PO SCH (20:44)
[2017-11-02] MEDS: diphenhydrAMINE HCL 50 MG CAP PO PRN (01:52)
[2017-11-02] MEDS: LEVOTHYROXINE SODIUM 75 MCG TAB PO SCH (05:04)
[2017-11-02 06:05] VITALS: BP 121/62; PULSE 98; RESP 18; TEMP 98.3; O2SAT 97
[2017-11-02] MEDS: INSULIN ASPART SUPPLEMENTAL SCALE SQ SCH ×3 (08:00→16:25)
[2017-11-02] MEDS: ARIPiprazole 5 MG TAB PO SCH (08:50)
[2017-11-02] MEDS: TORSEMIDE 5 MG TAB PO SCH (08:51)
[2017-11-02] MEDS: SPIRONOLACTONE 25 MG TAB PO SCH (08:51)
[2017-11-02] MEDS: ZIPRASIDONE HCL 80 MG CAP PO SCH ×2 (08:51→21:08)
[2017-11-02] MEDS: PRAVASTATIN SOD 20 MG TAB PO SCH (08:51)
[2017-11-02] MEDS: metFORMIN HCL 500 MG TAB PO SCH ×2 (08:51→17:21)
[2017-11-02] MEDS: METOPROLOL SUCCINATE 25 MG EXTENDED RELEASE TAB PO SCH (08:51)
--- NOTE | 2017-11-02 12:53 | HHI.PR ---
Subjective Remarks Follow-up visit problem CHF, hypothyroidism, DM. Patient seen and examined resting in her bed in no acute distress. Patient reports that she has been having trouble sleeping at bedtime due to her sleep apnea. She reports that she has tried CPAP machine in the past but that she could not tolerate this. She is requesting something that goes over her nose to help open up her nostrils. I discussed with her that this is not something that we have available and will most likely not help with her sleep apnea. I have offered CPAP machine, patient refusing. She denies any fevers, chills, nausea, vomiting , diarrhea. She denies any cough, shortness of breath, or chest pains. Patient is asking when she will be going home. Objective Vitals Vital Signs Date Time Temp Pulse Resp B/P (MAP) Pulse Ox O2 Delivery O2 Flow Rate FiO2 11/02/17 06:05 98.3 98 18 121/62 (81) 97 11/01/17 16:50 97.9 94 18 152/78 (102) 97 Result Diagram: 10/30/17 0820 10/31/17 0820 Objective Remarks GENERAL: This is an obese, well-developed patient, in no apparent distress. SKIN: Warm and dry. HEENT: Normocephalic. Pupils equal round and reactive. Nose without bleeding. Airway patent. NECK: Trachea midline. CARDIOVASCULAR: Regular rate and rhythm without murmurs, gallops, or rubs. RESPIRATORY: Clear to auscultation. Breath sounds equal bilaterally. No wheezes , rales, or rhonchi. GASTROINTESTINAL: Abdomen soft, non-tender, obese. Bowel Sounds normoactive x4. MUSCULOSKELETAL: Extremities without clubbing, cyanosis. Bilateral lower extremity trace edema. NEUROLOGICAL: Awake and alert. Oriented to place, person. No focal neuro deficit. Moves all extremities. Normal speech. A/P Problem List: (1) Diabetes mellitus ICD Code: E11.9 - Type 2 diabetes mellitus without complications (2) Schizophrenia ICD Code: F20.9 - Schizophrenia, unspecified Status: Acute Assessment and Plan Patient is a 57 year old female with a history of schizophrenia, diabetes mellitus, hypothyroidism who was admitted to psychiatry unit due to bizarre, paranoid behavior. Hospitalist service was consulted for medical management. Schizophrenia - management per psychiatry Diabetes mellitus - Continue Metformin for diabetes since GFR is > 45. - Blood glucose within reasonable range. Change frequency of Accu-Cheks to twice a day before meals. - Continue ADA diet. Bilateral lower ext edema Possible CHF, chronic. - Based on patient's meds - Metoprolol succinate, lasix, Aldactone - patient' s lower ext edema is likely due to CHF. - Continue Metoprolol, Aldactone and Torsemide 5mg Qday. - Currently not decompensated. BNP checked on 10/31/17 was 13 - Continue current medication regimen. Sleep apnea, chronic - Patient reports that she does not tolerate CPAP machine - Discussed with her that tape device over nasal bridge which she is talking about will likely not help with SOFY. - Patient will let medical team know if she changes her mind regarding CPAP machine. Hypothyroidism - Patient has not been on Levothyroxine for a while. This may explain her elevated TSH - continue Levothyroxine 75mcg Qday. - Will need to have TSH rechecked in 6 weeks as outpatient. DVT prop Ambulation. Wolf Arias Nov 02, 2017 12:53
--- NOTE | 2017-11-02 15:32 | HHI.PYPN ---
Subjective Remarks Patient seen in the sales with nurse Amy. Chart reviewed, patient compliant medication. Patient somewhat intrusive poor personal boundaries, speech somewhat rapid and pressured. Saying she wants to talk to me about events that occurred in [place] 30+ years ago though she does have a counselor in the community. She denies suicidality at this time and voices at this time. I did share with her the need to get appropriate talk therapy Ayanna schedule outpatient basis to address prior experiential issues Review of Systems Except as stated in HPI: all other systems reviewed are Neg Mental Status Examination Appearance: Appropriate Consciousness: Alert Orientation: x4 Motor Activity: Normal gait, Other (no abnormal motor movements noted) Speech: Unremarkable Language: Adequate Fund of Knowledge: Adequate Attention and Concentration: Adequate Memory: Unremarkable Mood: Other (somewhat somber today) Affect: Blunt Thought Process & Associations: Intact, Logical, Linear Thought Content: Appropriate Hallucination Type: None Delusion Type: Other (mild grandiosity) Suicidal Ideation: No Suicidal Plan: No Suicidal Intention: No Homicidal Ideation: No Homicidal Plan: No Homicidal Intention: No Insight: Poor Judgment: Poor Results Vitals/IOs Vital Signs Date Time Temp Pulse Resp B/P (MAP) Pulse Ox O2 Delivery O2 Flow Rate FiO2 11/02/17 06:05 98.3 98 18 121/62 (81) 97 Assessment & Plan Problem List: (1) Schizoaffective disorder, bipolar type ICD Codes: F25.0 - Schizoaffective disorder, bipolar type Assessment & Plan Estimated LOS: days patient remains somewhat manic intense intrusive also mildly paranoid. Compliant medications. Justification for Cont. Inpt. At this time patient will decompensate a placed a lower level of care Discharge Planning To be determined Request HC Surrog/Guard Advoc?: No Jamie Obrien MD Nov 02, 2017 15:32
[2017-11-02 18:14] VITALS: BP 149/91; PULSE 69; RESP 17; TEMP 97.4; O2SAT 98
[2017-11-02] MEDS: traZODone HCL 50 MG TAB PO SCH (21:08)
[2017-11-03] MEDS: diphenhydrAMINE HCL 50 MG CAP PO PRN (02:57)
[2017-11-03 05:46] VITALS: BP 127/71; PULSE 18; RESP 18; TEMP 98; O2SAT 99
[2017-11-03] MEDS: LEVOTHYROXINE SODIUM 75 MCG TAB PO SCH (06:01)
[2017-11-03] MEDS: INSULIN ASPART SUPPLEMENTAL SCALE SQ SCH ×2 (08:00→16:00)
[2017-11-03] MEDS: PRAVASTATIN SOD 20 MG TAB PO SCH (08:47)
[2017-11-03] MEDS: ZIPRASIDONE HCL 80 MG CAP PO SCH (08:48)
[2017-11-03] MEDS: TORSEMIDE 5 MG TAB PO SCH (08:48)
[2017-11-03] MEDS: ARIPiprazole 5 MG TAB PO SCH (08:48)
[2017-11-03] MEDS: METOPROLOL SUCCINATE 25 MG EXTENDED RELEASE TAB PO SCH (08:48)
[2017-11-03] MEDS: SPIRONOLACTONE 25 MG TAB PO SCH (08:48)
[2017-11-03] MEDS: metFORMIN HCL 500 MG TAB PO SCH ×2 (08:48→17:44)
--- NOTE | 2017-11-03 12:41 | HHI.PR ---
Subjective Remarks Follow-up visit on CHF, hypothyroidism, and diabetes. Patient seen and examined in her room, states that she will probably be going home today. She reports that she slept well last night and was given Benadryl to help her rest. She denies any fevers, chills, nausea, vomiting, diarrhea, cough, shortness of breath, or chest pains. Objective Vitals Vital Signs Date Time Temp Pulse Resp B/P (MAP) Pulse Ox O2 Delivery O2 Flow Rate FiO2 11/03/17 05:46 98.0 18 18 127/71 (89) 99 11/02/17 18:14 97.4 69 17 149/91 (110) 98 I/O 11/02/17 11/02/17 11/02/17 11/03/17 11/03/17 11/03/17 07:00 15:00 23:00 07:00 15:00 23:00 Intake Total 960 ml Balance 960 ml Intake Oral 960 ml Result Diagram: 10/30/1781910/31/17 0820 Objective Remarks GENERAL: This is an obese, well-developed patient, in no apparent distress. SKIN: Warm and dry. HEENT: Normocephalic. Pupils equal round and reactive. Nose without bleeding. Airway patent. NECK: Trachea midline. CARDIOVASCULAR: Regular rate and rhythm without murmurs, gallops, or rubs. RESPIRATORY: Clear to auscultation. Breath sounds equal bilaterally. No wheezes , rales, or rhonchi. GASTROINTESTINAL: Abdomen soft, non-tender, obese. Bowel Sounds normoactive x4. MUSCULOSKELETAL: Extremities without clubbing, cyanosis. No edema noted. NEUROLOGICAL: Awake and alert. Oriented to place, person. No focal neuro deficit. Moves all extremities. Normal speech. A/P Problem List: (1) Diabetes mellitus ICD Code: E11.9 - Type 2 diabetes mellitus without complications (2) Schizophrenia ICD Code: F20.9 - Schizophrenia, unspecified Status: Acute Assessment and Plan Patient is a 57 year old female with a history of schizophrenia, diabetes mellitus, hypothyroidism who was admitted to psychiatry unit due to bizarre, paranoid behavior. Hospitalist service was consulted for medical management. Schizophrenia - management per psychiatry Diabetes mellitus - Continue Metformin for diabetes since GFR is > 45. - Blood glucose within reasonable range. Accu-Cheks to twice a day before meals, blood sugars well-controlled. - Continue ADA diet. Bilateral lower ext edema Possible CHF, chronic. - Based on patient's meds - Metoprolol succinate, lasix, Aldactone - patient' s lower ext edema is likely due to CHF. - Continue Metoprolol, Aldactone and Torsemide 5mg Qday. - Currently not decompensated. BNP checked on 10/31/17 was 13 - Continue current medication regimen. Sleep apnea, chronic - Patient reports that she does not tolerate CPAP machine - Discussed with her that tape device over nasal bridge which she is talking about will likely not help with SOFY. - Patient will let medical team know if she changes her mind regarding CPAP machine. - Recommended to follow-up with her PCP. Hypothyroidism - Patient has not been on Levothyroxine for a while. This may explain her elevated TSH - continue Levothyroxine 75mcg Qday. - Will need to have TSH rechecked in 6 weeks as outpatient. DVT prop Ambulation. Wolf Arias Nov 03, 2017 12:41
[2017-11-03] MEDS ORDERED: GEOD80CA PO (15:26)
[2017-11-03] MEDS ORDERED: SPIR25 PO (15:26)
[2017-11-03] MEDS ORDERED: LEVO.075 PO (15:26)
[2017-11-03] MEDS ORDERED: METO1TAB42 PO (15:26)
[2017-11-03] MEDS ORDERED: PRAV20TA PO (15:26)
[2017-11-03] MEDS ORDERED: TORS5TAB2 PO (15:26)
[2017-11-03] MEDS ORDERED: TRAZ50TA12 PO (15:26)
[2017-11-03] MEDS ORDERED: ARIP1TAB11 PO (15:26)
[2017-11-03] MEDS ORDERED: METF500 PO (15:26)
--- NOTE | 2017-11-03 15:31 | HHI.DS ---
Psychiatry Discharge Summary Inpatient Psychiatric care?: Yes Advance Directive: No Reason Not Provided: DECLINED Mental Health AdvanceDirective: No Health Care Proxy: No Admission Admission Date Oct 29, 2017 at 19:38 Admission Diagnosis: (1) Schizoaffective disorder, bipolar type ICD Code: F25.0 - Schizoaffective disorder, bipolar type Brief History Please see brief history continue with Dr. Andrew Thompson Tobacco Use In Past 30 Days: No Tobacco Past 30 Days Alcohol Use: Never Hospital Course Patient's hospital course was uneventful, she was compliant with medications from admission her initial rapid pressured speech intensity and intrusiveness diminished rapidly. Patient seen today she is alert oriented calm cooperative states wish to go with her family. She is making a commitment to be compliant with the medications and her appointments. She denies suicidality homicidality voices or visions. Patient states she does have a private nurse practitioner she sees in the community to follow-up with. She'll be given Rx 1 month overscheduled medications Results Blood Pressure 127 / 71 Vital Signs Date Time Temp Pulse Resp B/P (MAP) Pulse Ox O2 Delivery O2 Flow Rate FiO2 11/03/17 05:46 98.0 127/71 (89) 99 Laboratory Results Test 10/30/17 08:20 Cholesterol Level 184 MG/DL (120-200) HDL Cholesterol 53.6 MG/DL (40.0-60.0) Hemoglobin A1c 7.1 % (4.3-6.0) LDL Cholesterol 101 MG/DL (0-99) Triglycerides Level 147 MG/DL (42-150) Summary of Procedures None done Pending results at discharge: No Medications # of Antipsychotic meds at D/C: 2 Appropriate >1 Antipsych meds?: 2 (would recommend community psychiatrist gradual weaning patient off Abilify when she is stabilized) Approp Antipsych med options 1 - Minimum of three failed multiple trials of monotherapy. 2 - Documented plan to taper to monotherapy due to previous use of multiple meds OR cross-taper in progress at D/C. 3 - Documentation of augmentation of Clozapine. 4 - Justification other than those listed in allowable values 1-3, document here : Discharge Discharge Date: Nov 03, 2017 Discharge Diagnosis: (1) Schizoaffective disorder, bipolar type Diagnosis: Principal ICD Code: F25.0 - Schizoaffective disorder, bipolar type Pt Condition on Discharge: Stable Discharge Disposition: Discharge Home Discharge Instructions Diet Instructions: As Tolerated, No Restrictions Activities you can perform: Regular-No Restrictions Scheduled Appointment: follow-up private nurse practitioner and community Discharge Time > 30 minutes Mental Status Examination Appearance: Appropriate Consciousness: Alert Orientation: x4 Motor Activity: Normal gait, Other (no abnormal motor movements noted) Speech: Unremarkable Language: Adequate Fund of Knowledge: Adequate Attention and Concentration: Adequate Memory: Unremarkable Mood: Other (somewhat somber today) Affect: Blunt Thought Process & Associations: Intact, Logical, Linear Thought Content: Appropriate Hallucination Type: None Delusion Type: Other (mild grandiosity) Suicidal Ideation: No Suicidal Plan: No Suicidal Intention: No Homicidal Ideation: No Homicidal Plan: No Homicidal Intention: No Insight: Poor Judgment: Poor Discharge/Advance Care Plan Health Problems: (1) Schizoaffective disorder, bipolar type Goals to promote your health * To prevent worsening of your condition and complications * To maintain your health at the optimal level Directions to meet your goals Take your medications as prescribed Follow your dietary instruction Follow activity as directed Keep your appointments as scheduled Take your immunizations and boosters as scheduled If your symptoms worsen call your PCP, if no PCP go to Urgent Care Center or Emergency Room For 15/05 questions related to your inpatient stay or results of tests pending at discharge, please contact Dr. Jamie Obrien at Smoking is Dangerous to Your Health. Avoid second hand smoking Jamie Obrien MD Nov 03, 2017 15:31
[2017-11-03 18:42] VITALS: BP 125/58; PULSE 75; RESP 18; TEMP 98.4; O2SAT 98
== END 2017-11-03 19:55 | disposition home or self-care (01) | DRG 885 ==
LOC: NEPE 12:59 → NEDA 19:38 → H270 21:00 → H260 11-02 09:48
PROVIDERS: ADMIT Psychiatry & Neurology Psychiatry; ATTEND Psychiatry & Neurology Psychiatry
DX: F25.0 Schizoaffective disorder, bipolar type (principal); I50.9 Heart failure, unspecified; Z68.42 Body mass index [BMI] 45.0-49.9, adult; E66.9 Obesity, unspecified; E11.9 Type 2 diabetes mellitus without complications; Z79.84 Long term (current) use of oral hypoglycemic drugs; I10 Essential (primary) hypertension; E03.9 Hypothyroidism, unspecified; Z91.14 Patient's other noncompliance with medication regimen; G47.30 Sleep apnea, unspecified
CPT/HCPCS: 80048; 80053; 80061; 80307; 82948; 83036; 83880; 84443; 85025; 93005; 99285; J1815; Q0163

== ENCOUNTER 2018-10-09 17:34 | Inpatient (IN) ==
[2018-10-09] MEDS ORDERED: Bisacodyl 10 MG Supp RECTAL PRN ×2 (20:44→20:45)
[2018-10-09] MEDS ORDERED: Aluminum/Magnesium/Simethacone Susp 30 ML UDC PO PRN ×2 (20:44→20:45)
[2018-10-09] MEDS ORDERED: Melatonin 5 MG Tablet PO SCH (21:00)
[2018-10-09] MEDS: Melatonin 5 MG Tablet PO SCH (22:00)
[2018-10-09] MEDS: Senna/Docusate Sodium 8.6/50 MG Tablet PO SCH (22:09)
[2018-10-10 06:51] LABS: Calcium 8.5 mg/dL (8.5-10.1); Carbon Dioxide 25.5 meq/L (21.0-32.0); Potassium 4.5 meq/L (3.5-5.1)
[2018-10-10 06:54] LABS: Chol/HDL Ratio 3.17 Ratio; HDL Cholesterol 43.5 mg/dL (40.0-60.0)
[2018-10-10] MEDS: Senna/Docusate Sodium 8.6/50 MG Tablet PO SCH ×2 (09:14→21:08)
--- NOTE | 2018-10-10 12:06 | P.HPPSY ---
Provisional Diagnosis Admission Date: October 09, 2018 20:00 Schizoaffective disorder bipolar type current episode mixed Competence Certification of Person's Competence To Provide Express and Informed Consent I have personally examined Jackie Chopra, a person being served at [facility] on, October 10, 2018 1129. Express and informed consent means consent voluntarily given in writing, by a competent person, after sufficient explanation and disclosure of the subject matter involved to enable the person to make a knowing and willful decision without any element of force, fraud, deceit, duress, or other form of constraint or coercion. This person is 18 years of age or older, is not now known to be incompetent to consent to treatment with a guardian advocate, and does not have a health care surrogate or proxy currently making medical treatment decisions. I have found this person to be one of the following: [] Competent to provide express and informed consent, as defined above, for voluntary admission to this facility and is competent to provide express and informed consent for treatment. He/she has the consistent capacity to make well reasoned, willful, and knowing decisions concerning his or her medical or mental health treatment. The person fully and consistently understands the purpose of the admission for examination/placement and is fully capable of personally exercising all rights assured [place] [] Incompetent to provide express and informed consent to voluntary admission, and this is incompetent to provide express and informed consent to treatment. The person must be transferred to involuntary status and a petition for a guardian advocate filed with the Circuit Court. [] Refusing to provide express and informed consent to voluntary admission but is competent to provide express and informed consent for treatment. The person must be discharged or transferred to involuntary status. Form shall be completed within 24 hours of a person's arrival at the receiving facility and filed in the clinical record of each person: 1. Admitted on a voluntary basis 2. Permitted to provide express and informed consent to his/her own treatment 3. Allowed to transfer from involuntary to voluntary status 4. Prior to permitting a person to consent to his or her own treatment after having been previously found incompetent to consent to treatment. History of Present Illness Capacity: Has capacity (Patient has an outpatient quietest TRACTOR OPERATOR HELPER and has been recommended for a therapist.) Chief Complaint: Manic behavior and severely thought processing. History of Present Illness: October 10, 2018 HPI Patient is a 14-year-old [place]ese female presented to [facility] with manic, disorganized thought construction and severe anxiety patient has had multiple hospitalizations scattered across [place], the most recent hospitalization at [place] was October of this year. At that time the patient presented with Demler symptoms and a history of noncompliance with her medication. It was impossible to determine the degree of compliance and type of medication patient is currently taking. She demonstrates tangential and scattered extremely over detailed information and is unable to give such a simple answer to questions as to what medications she is currently supposed to be taking. The patient has outpatient TRACTOR OPERATOR HELPER and and psychiatrist may be helpful in getting this up-to-date. The patient apparently has missed a visit to her TRACTOR OPERATOR HELPER The patient was seen in October of this year on the inpatient service, for similar complaint including noncompliance with medication. The patient had been taking Geodon 80 mg twice a day. Not clear whether this medication was given to the patient during her stay only that an EKG was done showing a right bundle branch block. The report of the EKG does not indicate the QT C interval. It is suspected that because of the right bundle branch block she was not restarted on Geodon. The indications are that she was started on Abilify. Corollary information is necessary for help and understanding the patient's compliance or lack thereof. - Inpatient Certification I certify that the inpatient services were ordered in accordance with Medicare regulations governing the order. This includes certification that hospital inpatient services are reasonable and necessary and in the case of services not specified as inpatient-only under 42 CFR 419.22(n), that they are appropriately provided as inpatient services in accordance to with the 2-midnight benchmark under 43 CFR 412.3(e) I certify that inpatient psychiatric hospital services are medically necessary. Evaluation and treatment and/or diagnostic testing are expected to improve the patient's condition. The patient needs on a daily basis, active treatment furnished directly by or requiring the supervision of inpatient psychiatric facility personnel. Estimated Total Length of Stay (Days): 5 Plans for Post Hospital Care: Not yet determined PMFSH - History History Provided By: Patient, Medical Record - Tobacco History Second Hand Smoke Exposure: No Tobacco Use In Past 30 Days: No Smoking Status: Never smoker - Alcohol History How Often Do You Have a Drink Containing Alcohol: Never - Substance Use History Substance History: No History of Abuse - Travel History History of Recent Travel: No Recent Travel in the [place] Within the Last 8 Weeks: No Recent Travel Out of the Country Within the Last 8 Weeks: No Quality Measures - Patient Strengths Patient's strengths (minimum of 2): Patient is pleasant cooperative woman with a high school education and some college. Medications and Allergies Active Medications: Active Medications Al Hydrox/Mg Hydrox/Simethicone (Mag-Al Plus Susp Liq) 30 ml PO Q6H PRN PRN Reason: DYSPEPSIA Al Hydroxide/Mg Hydroxide (Milk Of Magnesia Liq) 30 ml PO Q12H PRN PRN Reason: Mild Constipation Bisacodyl (Dulcolax Supp) 10 mg RECTAL DAILY PRN PRN Reason: SEVERE CONSITIPATION Lactulose (Lactulose Liq) 30 ml PO DAILY PRN PRN Reason: SEVERE CONSITIPATION Melatonin (Melatonin) 5 mg PO [facility] Last Admin: 10/09/18 22:00 Dose: Not Given Senna/Docusate Sodium (Milena-Colace) 1 tab PO BID [facility] Last Admin: 10/10/18 09:14 Dose: 1 tab Sennosides (Senokot) 17.2 mg PO Q12H PRN PRN Reason: Moderate Constipation Patient is type 2 diabetes mellitus and is taking metformin 500 mg twice daily Allergies Allergy/AdvReac Type Severity Reaction Status Date / Time lisinopril Allergy Severe Verified 11/20/17 05:13 BP MED Allergy Severe Uncoded 06/24/16 12:47 Results - Labs CBC & Chem 7: 10/10/18 06:08 Labs: Laboratory Results - last 24 hr 10/10/18 06:08 Sodium 140 Potassium 4.5 Chloride 109 H Carbon Dioxide 25.5 Anion Gap 6 BUN 12 Creatinine 0.78 Estimated GFR 75 L Random Glucose 103 Calcium 8.5 Triglycerides 130 Cholesterol 138 LDL Cholesterol, Calc 69 HDL Cholesterol 43.5 Cholesterol/HDL Ratio 3.17 Exam Vital signs: Vital Signs 10/09/18 20:20 10/10/18 05:09 Temperature 97.9 F 98.2 F Pulse Rate 94 H 89 Blood Pressure 137/58 L 108/64 Pulse Oximetry 98 89 L Intake & Output 10/09/18 10/10/18 10/10/18 18:59 06:59 18:59 Weight 234 kg Other: Weight On Admission 234 kg Mental Status Examination Appearance: Appropriate Consciousness: Alert, Vigilant Orientation: x4 Motor Activity: Normal gait Speech: Pressured, Rapid Language: Adequate Fund of Knowledge: Adequate Attention and Concentration: Easily distracted Memory: Unremarkable Mood: Manic Affect: Euthymic Thought Process & Associations: Loose associations, Tangential Thought Content: Racing thoughts Hallucination Type: None Delusion Type: None Suicidal Ideation: No Suicidal Plan: No Suicidal Intention: No Homicidal Ideation: No Homicidal Plan: No Homicidal Intention: No Insight: Fair Judgment: Impulsive Assessment and Plan - Plan Plan: Estimated LOS: [] daysary. She has a long history of compliance with inpatient treatment. her lack of compliance with outpatient treatment suggests a possible need for an injectable neuroleptic medication. Until more information regarding the patient's history of treatment is available we will start her on Abilify 5 mg twice a day. The patient is likely to unreliable to use lithium. Since there is no available information indicating failure of monotherapy will stay with the Abilify for now. Patient will be allowed to sign voluntary if after 3 days she is compliant and shows capacity. At present time I think she would sign voluntary but not certain that she will not further decompensate. Justification for Continued Inpatient Stay: Patient is acutely psychotic with both manic and schizophrenic symptoms. The hypercathexis of detail suggest an element of depression as well. At this point there is insufficient information to be absolutely certain of the patient' s dangerousness to self or to others.
[2018-10-10 12:14] LABS: Hemoglobin A1c 6.6 % (4.3-6.0)
[2018-10-10] MEDS: Melatonin 5 MG Tablet PO SCH (21:08)
[2018-10-11] MEDS: Senna/Docusate Sodium 8.6/50 MG Tablet PO SCH ×2 (09:13→21:08)
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
[2018-10-11] MEDS: Melatonin 5 MG Tablet PO SCH (21:08)
[2018-10-12] MEDS: Melatonin 5 MG Tablet PO SCH ×2 (02:42→22:11)
--- NOTE | 2018-10-12 09:44 | P.PNPSY ---
Subjective Chief Complaint: Manic behavior and severely thought processing. Remarks: The patient was seen for the purpose of providing a second opinion to the Metzger act order. Chart reviewed to include emergency department paperwork and the attending's history and physical. Patient discussed with nursing staff; we reviewed the patient's mood, thoughts, and behaviors since arrival to the unit. Nursing reports that patient continues to respond to internal stimuli and has been observed talking to the TV. She has been intrusive with other patients and has been verbally aggressive with others. She is noncompliant with medications. Patient was seen at bedside and appeared restless. Speech was pressured and her response to initial questioning was incoherent and she became increasingly agitated. Mental Status Examination Appearance: Appropriate Consciousness: Alert, Vigilant Orientation: Person Motor Activity: Normal gait Speech: Pressured, Rapid Language: Adequate Fund of Knowledge: Adequate Attention and Concentration: Easily distracted Memory: Unremarkable Mood: Manic Affect: Irritable, Labile Thought Process & Associations: Loose associations, Tangential Thought Content: Bizarre thinking, Delusional Hallucination Type: None Delusion Type: Paranoid Suicidal Ideation: No Suicidal Plan: No Suicidal Intention: No Homicidal Ideation: No Homicidal Plan: No Homicidal Intention: No Insight: Poor Judgment: Poor (Patient has deteriorated over the past 24 hours) Assessment and Plan - Assessment (1) Schizoaffective disorder, bipolar type Code(s): F25.0 - Schizoaffective disorder, bipolar type Status: Acute - Plan Plan: The patient meets criteria for involuntary psychiatric admission due to her lack of awareness as to the need for inpatient stabilization and substantial risk of intermittent harm to self or others if discharged to a less restrictive environment. Justification for Continued Inpatient Stay: Patient remains an elevated risk for self-harm by self neglect and will require further inpatient stabilization and preparation of a safe discharge plan. Moving patient to a less restrictive environment at this time may result in decompensation.
[2018-10-12] MEDS: Senna/Docusate Sodium 8.6/50 MG Tablet PO SCH ×2 (10:22→22:11)
--- NOTE | 2018-10-12 10:39 | P.PNPSY ---
Subjective Chief Complaint: Manic behavior and severely thought processing. Remarks: October 12, 2018 Subjective: Patient responses to others with aggression hostility and disorganized and hostile association. For reasons that are Yes[place] to me the patient seems far better organized when I speak to her today. Yesterday, she started with hostile attitude and perseveration of paranoid ideas as well as demands to be released. Today she is cooperative smiling and pleasant. With the nurse records were reviewed. Appreciate Dr. Caraballo's second opinion consultation which elaborates the current condition in a manner that is consistent with other reports. Patient is refusing medication today until I spoke with her and she has agreed to comply. Mental Status Examination Appearance: Appropriate Consciousness: Alert, Vigilant Orientation: Person Motor Activity: Normal gait Speech: Pressured, Rapid Language: Adequate Fund of Knowledge: Adequate Attention and Concentration: Easily distracted Memory: Unremarkable Mood: Manic Affect: Irritable, Labile Thought Process & Associations: Loose associations, Tangential Thought Content: Bizarre thinking, Delusional Hallucination Type: None Delusion Type: Paranoid Suicidal Ideation: No Suicidal Plan: No Suicidal Intention: No Homicidal Ideation: No Homicidal Plan: No Homicidal Intention: No Insight: Poor Judgment: Poor (Patient has deteriorated over the past 24 hours) Assessment and Plan - Assessment (1) Schizoaffective disorder, bipolar type Code(s): F25.0 - Schizoaffective disorder, bipolar type Status: Acute - Plan Plan: The patient meets criteria for involuntary psychiatric admission due to her lack of awareness as to the need for inpatient stabilization and substantial risk of intermittent harm to self or others if discharged to a less restrictive environment. October 12, 2018 Patient's inconsistent behavior makes for difficult management. Justification for Continued Inpatient Stay: October 12, 2018 Patient remains psychotic and requires inpatient services to prevent decompensation that would occur lower level of care.
[2018-10-13] MEDS: Senna/Docusate Sodium 8.6/50 MG Tablet PO SCH ×2 (08:03→20:45)
[2018-10-13] MEDS: Haloperidol 5 MG Tablet PO ONE ×2 (11:07→11:17)
[2018-10-13] MEDS ORDERED: Haloperidol Inj 5 MG/ML Ampul IM ONE (11:12)
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
[2018-10-13] MEDS: Melatonin 5 MG Tablet PO SCH (20:45)
[2018-10-14] MEDS: Senna/Docusate Sodium 8.6/50 MG Tablet PO SCH ×2 (08:26→20:27)
--- NOTE | 2018-10-14 13:06 | P.PNPSY ---
Subjective Chief Complaint: Manic behavior and severely thought processing. Remarks: Reviewed electronic medical record and discussed with nursing staff. Rounded with JAMIA Norton. Patient in day room. States she is feeling alot better. Endorses that she had a good night's sleep which helped her. Denies racing thoughts, denies impulsiveness. She is engaging with other patients. Calm and no behavioral concerns. Denies SI/HI. Nurses feel that she is improving. Review of Systems All other systems reviewed negative except as stated in HPI Mental Status Examination Appearance: Appropriate Consciousness: Alert Orientation: Person Motor Activity: Normal gait Speech: Pressured, Rapid Language: Adequate Fund of Knowledge: Adequate Attention and Concentration: Easily distracted Memory: Unremarkable Mood: Appropriate Affect: Appropriate Thought Process & Associations: Intact Thought Content: Bizarre thinking Hallucination Type: None Delusion Type: None Suicidal Ideation: No Suicidal Plan: No Suicidal Intention: No Homicidal Ideation: No Homicidal Plan: No Homicidal Intention: No Insight: Fair Judgment: Impulsive Assessment and Plan - Assessment (1) Schizoaffective disorder, bipolar type Code(s): F25.0 - Schizoaffective disorder, bipolar type Status: Acute - Plan Plan: 10/14/18 continue current treatment plan. Justification for Continued Inpatient Stay: Moving patient to a less restrictive environment may result in her decompensation.
[2018-10-14] MEDS ORDERED: Haloperidol Inj 5 MG/ML Ampul ONE (19:31)
[2018-10-14] MEDS ORDERED: Haloperidol Inj 5 MG/ML Ampul IM ONE (19:45)
[2018-10-14] MEDS: Melatonin 5 MG Tablet PO SCH (20:27)
[2018-10-15] MEDS: Senna/Docusate Sodium 8.6/50 MG Tablet PO SCH ×2 (08:22→20:17)
--- NOTE | 2018-10-15 13:11 | P.PNPSY ---
Subjective Chief Complaint: Manic behavior and severely thought processing. Remarks: October 15, 2018 Subjective: Patient's son contacted today and consent to treat the patient with Seroquel and with Abilify was obtained. Patient has required frequent emergency treatment orders to which she responds but only briefly. She has been refusing medications and except for the ETOs has not been receiving prescribed medication. Patient is very different when I see her and seems to be completely calm and less psychotic than noted on admission. This change toward me big can mid interview of her second day in the hospital. Hopefully with the addition of Seroquel and Abilify the patient will not require further emergency treatments. It is noted the patient only slept 3 hours last night. Please at bedtime Seroquel of 100 mg will resolve this problem. Mental Status Examination Appearance: Appropriate Consciousness: Alert Orientation: Person, Place Motor Activity: Normal gait Speech: Slow (Varies with the proximity of her last emergency treatment order) Language: Adequate Fund of Knowledge: Adequate Attention and Concentration: Easily distracted Memory: Unremarkable Mood: Appropriate, Oppositional (Refusing meds at times) Affect: Labile Thought Process & Associations: Loose associations Thought Content: Bizarre thinking Hallucination Type: None Delusion Type: Paranoid Suicidal Ideation: No Suicidal Plan: No Suicidal Intention: No Homicidal Ideation: No Homicidal Plan: No Homicidal Intention: No Insight: Poor Judgment: Poor Assessment and Plan - Assessment (1) Schizoaffective disorder, bipolar type Code(s): F25.0 - Schizoaffective disorder, bipolar type Status: Acute - Plan Plan: 10/14/18 continue current treatment plan. Patient will be started on Seroquel 100 mg at at bedtime and Abilify 5 mg once a day. The Abilify will be increased if the patient tolerates. Justification for Continued Inpatient Stay: Patient remaines psychotic and could not function in a less restrictive environment.
[2018-10-15] MEDS ORDERED: ARIPiprazole 5 MG Tablet PO ONE (13:12)
[2018-10-15] MEDS: ARIPiprazole 10 MG Tablet PO SCH (13:58)
[2018-10-15] MEDS: QUEtiapine 100 MG Tablet PO SCH (20:15)
[2018-10-15] MEDS: Melatonin 5 MG Tablet PO SCH (20:18)
[2018-10-16] MEDS: ARIPiprazole 10 MG Tablet PO SCH (08:54)
[2018-10-16] MEDS: Senna/Docusate Sodium 8.6/50 MG Tablet PO SCH ×2 (08:54→20:26)
--- NOTE | 2018-10-16 13:49 | P.PNPSY ---
Subjective Chief Complaint: Manic behavior and severely thought processing. Remarks: October 16, 2018 Subjective: The patient reports feeling much better she has been less of a bother to the nursing staff. Patient was seen with nursing and reports from the previous evening discussed both with the nurse and the patient. Patient is not refused the medication the medication she believes is helping her feel calm her though her paranoia and mood remain unstable. Mental Status Examination Appearance: Appropriate Consciousness: Alert Orientation: Person, Place Motor Activity: Normal gait Speech: Slow (Varies with the proximity of her last emergency treatment order) Language: Adequate Fund of Knowledge: Adequate Attention and Concentration: Easily distracted Memory: Unremarkable Mood: Appropriate, Oppositional (Refusing meds at times) Affect: Labile Thought Process & Associations: Loose associations Thought Content: Bizarre thinking Hallucination Type: None Delusion Type: Paranoid Suicidal Ideation: No Suicidal Plan: No Suicidal Intention: No Homicidal Ideation: No Homicidal Plan: No Homicidal Intention: No Insight: Poor Judgment: Poor Assessment and Plan - Assessment (1) Schizoaffective disorder, bipolar type Code(s): F25.0 - Schizoaffective disorder, bipolar type Status: Acute - Plan Plan: 10/14/18 continue current treatment plan. Patient will be started on Seroquel 100 mg at at bedtime and Abilify 5 mg once a day. The Abilify will be increased if the patient tolerates. Patient appears to tolerate the medication. If she remains stable and continues to improve on this dosage, the dosage will not be an increased for now. Justification for Continued Inpatient Stay: October 16, 2018 Patient remains at risk for deterioration and decompensation in the less structured facility.
[2018-10-16] MEDS: Melatonin 5 MG Tablet PO SCH (20:26)
[2018-10-16] MEDS: QUEtiapine 100 MG Tablet PO SCH (20:26)
[2018-10-17] MEDS: Senna/Docusate Sodium 8.6/50 MG Tablet PO SCH ×2 (08:04→20:25)
[2018-10-17] MEDS: ARIPiprazole 10 MG Tablet PO SCH (08:04)
--- NOTE | 2018-10-17 12:54 | P.PNPSY ---
Subjective Chief Complaint: Manic behavior and severely thought processing. Remarks: October 17, 2018: The patient was seen [id number] with the nursing staff who report that the patient slept very little last night. The patient insisted that she was not sleepy and that is why she had refused her nighttime medication. She became quite irritable and hostile towards the nurse after having been pleasant and smiling to me. The patient feels she can report improvement to me and demand that I look at the "videotapes that are being taken of her" to prove that she tells the truth and the nurses do not. The patient then demonstrated the need for an increase in her medication with a flurry of irritable and demeaning comments about nurses lying about. Mental Status Examination Appearance: Appropriate Consciousness: Alert Orientation: Person, Place Motor Activity: Normal gait Speech: Rapid (Patient shows increased rate of speech when angry.) Language: Adequate Fund of Knowledge: Adequate Attention and Concentration: Easily distracted Memory: Unremarkable Mood: Angry (Tightness of associations deteriorate with the patient's irritability), Oppositional (Refusing meds at times), Irritable Affect: Labile Thought Process & Associations: Loose associations Thought Content: Bizarre thinking (Paranoid ideas) Hallucination Type: None Delusion Type: Paranoid (Feel the nurses are not telling the truth about her behavior) Suicidal Ideation: No Suicidal Plan: No Suicidal Intention: No Homicidal Ideation: No Homicidal Plan: No Homicidal Intention: No Insight: Poor Judgment: Poor Assessment and Plan - Assessment (1) Schizoaffective disorder, bipolar type Code(s): F25.0 - Schizoaffective disorder, bipolar type Status: Acute - Plan Plan: 10/14/18 continue current treatment plan. Patient will be started on Seroquel 100 mg at at bedtime and Abilify 5 mg once a day. The Abilify will be increased if the patient tolerates. Patient appears to tolerate the medication. If she remains stable and continues to improve on this dosage, the dosage will not be an increased for now. 10/17/2018 Plan is to titrate the patient's antipsychotic to this controls some of the paranoia and manic behavior. Should be given an EtOH she nightly dosage of Seroquel. Justification for Continued Inpatient Stay: 10/17/2018 Patient would certainly deteriorated to not continued on the inpatient service
[2018-10-17] MEDS: QUEtiapine 100 MG Tablet PO SCH (20:25)
[2018-10-17] MEDS: Melatonin 5 MG Tablet PO SCH (20:25)
[2018-10-18] MEDS: Senna/Docusate Sodium 8.6/50 MG Tablet PO SCH ×2 (08:00→20:13)
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
[2018-10-18] MEDS: Melatonin 5 MG Tablet PO SCH (20:12)
[2018-10-18] MEDS: QUEtiapine 100 MG Tablet PO SCH (20:13)
[2018-10-19] MEDS ORDERED: Haloperidol Inj 5 MG/ML Ampul IM SCH (06:12)
[2018-10-19] MEDS ORDERED: Haloperidol Inj 5 MG/ML Ampul ONE (06:16)
[2018-10-19] MEDS: Senna/Docusate Sodium 8.6/50 MG Tablet PO SCH ×2 (08:00→20:19)
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
[2018-10-19] MEDS: QUEtiapine 100 MG Tablet PO SCH (20:19)
[2018-10-19] MEDS: Melatonin 5 MG Tablet PO SCH ×3 (20:19→22:30)
[2018-10-20] MEDS: Senna/Docusate Sodium 8.6/50 MG Tablet PO SCH ×3 (08:56→20:29)
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
[2018-10-20] MEDS: Melatonin 5 MG Tablet PO SCH ×2 (20:26→22:13)
[2018-10-21] MEDS: Senna/Docusate Sodium 8.6/50 MG Tablet PO SCH ×2 (08:26→20:17)
--- NOTE | 2018-10-21 18:38 | P.PNPSY ---
Subjective Chief Complaint: Manic behavior and severely paranoid thought processing. Remarks: Reviewed electronic medical records and discussed case with staff. Follow-up was conducted in the patient's room with JAMIA Fulton present. Her nurse reports that she remains paranoid. She randomly comes out to the day room yelling at them and that everybody is after her. Her nurse also relates that when she was escorting her to mormonism services this morning the patient suddenly dropped to the floor in the hallway yelling "I have to pray". Upon her examination today the patient is extremely irritable. She states that she is "not good". When I asked her to elaborate she states, "you can hear the patient's talking about the sex that they are going to do on me". She refuses to answer further questions stating that I can ask her nurse she knows. Mental Status Examination Appearance: Appropriate Consciousness: Alert Orientation: Person, Place Motor Activity: Normal gait Speech: Rapid (Patient shows increased rate of speech when angry.) Language: Adequate Fund of Knowledge: Adequate Attention and Concentration: Easily distracted Memory: Unremarkable Mood: Angry (Tightness of associations deteriorate with the patient's irritability), Oppositional (Refusing meds at times), Irritable Affect: Labile Thought Process & Associations: Loose associations Thought Content: Bizarre thinking (Paranoid ideas) Hallucination Type: None Delusion Type: Paranoid (Feel the nurses are not telling the truth about her behavior) Suicidal Ideation: No Suicidal Plan: No Suicidal Intention: No Homicidal Ideation: No Homicidal Plan: No Homicidal Intention: No Insight: Poor Judgment: Poor Assessment and Plan - Assessment (1) Schizoaffective disorder, bipolar type Code(s): F25.0 - Schizoaffective disorder, bipolar type Status: Acute - Plan Plan: Patient will be reevaluated by the attending psychiatrist. Continue with current treatment plan. Patient remains paranoid, internally stimulated, and labile of mood. Justification for Continued Inpatient Stay: Moving this patient to a less restrictive environment would likely result in decompensation.
[2018-10-21] MEDS: Melatonin 5 MG Tablet PO SCH ×2 (20:17→20:21)
[2018-10-22] MEDS: Senna/Docusate Sodium 8.6/50 MG Tablet PO SCH ×2 (08:39→20:54)
--- NOTE | 2018-10-22 09:42 | P.PNPSY ---
Subjective Chief Complaint: Manic behavior and severely paranoid thought processing. Remarks: October 22, 2018 Subjective: The patient has been refusing her medications and has further decompensated over the weekend to the point of threatening other patients and feeling that the other patients are going to harm her. There is always a constant sexual theme. Patient is additionally showing rapid speech and an increase in her suspiciousness of everyone around her including staff. It is noted that she is showing increased preoccupation with religiosity. She has described as dropping to the floor and praying while being escorted to Monday services. Today the patient is perseverating on the scene of having only a problem with back pain that led her to [facility] who she claims for no reason [facility] her to [place]. Patient has absolutely no insight into her illness. Mental Status Examination Appearance: Appropriate Consciousness: Alert, Vigilant Orientation: Person, Place Motor Activity: Normal gait Speech: Pressured (Mental status deteriorating rapidly.), Rapid (Patient shows increased rate of speech when angry.) Language: Adequate Fund of Knowledge: Adequate Attention and Concentration: Easily distracted Memory: Unremarkable Mood: Angry (Tightness of associations deteriorate with the patient's irritability), Oppositional (Refusing meds at times), Irritable Affect: Labile Thought Process & Associations: Loose associations Thought Content: Bizarre thinking (Paranoid ideas) Hallucination Type: None Delusion Type: Paranoid (Feel the nurses are not telling the truth about her behavior) Suicidal Ideation: No Suicidal Plan: No Suicidal Intention: No Homicidal Ideation: No Homicidal Plan: No Homicidal Intention: No Insight: Poor Judgment: Poor Assessment and Plan - Assessment (1) Schizoaffective disorder, bipolar type Code(s): F25.0 - Schizoaffective disorder, bipolar type Status: Acute - Plan Plan: Patient will be reevaluated by the attending psychiatrist. Continue with current treatment plan. Patient remains paranoid, internally stimulated, and labile of mood. October 22, 2018 Patient noncompliance with medication suggests the need for an IM long-acting medication such as Invega Sustenna. Patient will be started on 3 mg and rapidly titrated up to 6 mg, observed for side effects and placed on the long- acting medication if problems do not develop on the oral medication. The dosage of Seroquel has already been increased to 200 mg at bedtime. This The Abilify will be discontinued by tapering dosage down by 10 mg/day. Justification for Continued Inpatient Stay: October 22, 2018 Patient has decompensated further over the weekend with her noncompliance with medication. It is becoming obvious that the patient will not take medication once discharged and so becomes necessary to employ a long acting medication that can be given once a month.
[2018-10-22] MEDS ORDERED: ARIPiprazole 10 MG Tablet PO ONE (09:44)
[2018-10-22] MEDS: Melatonin 5 MG Tablet PO SCH (21:35)
[2018-10-23] MEDS: Senna/Docusate Sodium 8.6/50 MG Tablet PO SCH ×3 (07:58→20:32)
--- NOTE | 2018-10-23 09:51 | P.TTN ---
- Patient Problems Problems: 1. Discharge planning 2. Medication compliance 3. Knowledge deficit 4. Lack of coping skills - Progress Toward Goals Provider Present: Other (Per Dr. Ceja. Patient is refusing antipsychotic medication this morning. Dr. Ceja is moving toward having the patient on a long-acting injectable Invega Sustenna. Patient will attend [facility] again this week.) Psychiatric Counselors Present: Bull Ramos Jr., [facility] (Patient has agreed to an assisted living facility. [facility] is coming to evaluate the patient on Monday. All clinical information was faxed to [facility] yesterday.) Group Spec/RT/OT/BRIGGS Present: Gisel Sandhu, [facility] (Patient attends select groups and is redirectable.) - Documentation Teaching Recipient: Patient
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
[2018-10-23] MEDS: Melatonin 5 MG Tablet PO SCH ×2 (20:32→20:35)
[2018-10-24] MEDS: Senna/Docusate Sodium 8.6/50 MG Tablet PO SCH ×2 (08:04→20:26)
[2018-10-24] MEDS: Melatonin 5 MG Tablet PO SCH ×2 (20:26→23:55)
[2018-10-25] MEDS: Senna/Docusate Sodium 8.6/50 MG Tablet PO SCH ×2 (08:26→21:00)
--- NOTE | 2018-10-25 13:47 | P.PNPSY ---
Subjective Chief Complaint: Manic behavior and severely paranoid thought processing. Remarks: October 24, 2018 late entry Patient seen history reviewed. There is been confusion regarding many reports of the patient not taking her medication, checking the MAR and further with the pharmacy indicates that the patient had been taking her Abilify, but was showing absolutely no improvement on 20 mg a day. Given the patient's total lack of insight into the severity of her mental disorder and her unreliability in the past long acting atypical neuroleptic IM injections are in order. Review of Systems Patient voices no somatic complaints today October 24, 2018. Mental Status Examination Appearance: Appropriate (No improvement) Consciousness: Alert, Vigilant Orientation: Person, Place Motor Activity: Normal gait Speech: Pressured (Mental status deteriorating rapidly.), Rapid (Patient shows increased rate of speech when angry.) Language: Adequate Fund of Knowledge: Adequate Attention and Concentration: Easily distracted Memory: Unremarkable Mood: Angry (Tightness of associations deteriorate with the patient's irritability), Oppositional (Refusing meds at times), Irritable Affect: Labile Thought Process & Associations: Loose associations Thought Content: Bizarre thinking (Paranoid ideas) Hallucination Type: None Delusion Type: Paranoid (Feel the nurses are not telling the truth about her behavior) Suicidal Ideation: No Suicidal Plan: No Suicidal Intention: No Homicidal Ideation: No Homicidal Plan: No Homicidal Intention: No Insight: Poor Judgment: Poor Assessment and Plan - Assessment (1) Schizoaffective disorder, bipolar type Code(s): F25.0 - Schizoaffective disorder, bipolar type Status: Acute - Plan Plan: October 23 19 Prior to the initiation of InVega sustena there is a need to observe the patient on a dosage of at least 6 mg a day of the oral form. I believe the patient has been on risperidone in the past but will attempt to verify October 24, 2018 patient can decision to continues to deteriorate, will increase dosage of neuroleptic. Justification for Continued Inpatient Stay: October 24, 2018 late entry Patient up and about with continued paranoia and some slight increase in her psychomotor activity. I believe patient would decompensate and certainly fail to take medication if discharged to a lower level of care.
--- NOTE | 2018-10-25 13:53 | P.PNPSY ---
Subjective Chief Complaint: Manic behavior and severely paranoid thought processing. Remarks: October 25, 2018 Subjective: Patient is lying in the bed complaining of hurting all over. She describes tingling sensations when touched on any part of her body Objective: Patient's vitals and laboratory did not reflect the possibility of a a neuroleptic related problem. Rather, it appears the patient is in need of attention. Review of Systems October 25, 2018 Patient complains of muscular soreness throughout her body. There are no other specific complaints. Mental Status Examination Appearance: Appropriate (No improvement) Consciousness: Alert, Vigilant Orientation: Person, Place Motor Activity: Normal gait Speech: Pressured (Mental status deteriorating rapidly.), Rapid (Patient shows increased rate of speech when angry.) Language: Adequate Fund of Knowledge: Adequate Attention and Concentration: Easily distracted Memory: Unremarkable Mood: Angry (Tightness of associations deteriorate with the patient's irritability), Oppositional (Refusing meds at times), Irritable Affect: Labile Thought Process & Associations: Loose associations Thought Content: Bizarre thinking (Paranoid ideas) Hallucination Type: None Delusion Type: Paranoid (Feel the nurses are not telling the truth about her behavior) Suicidal Ideation: No Suicidal Plan: No Suicidal Intention: No Homicidal Ideation: No Homicidal Plan: No Homicidal Intention: No Insight: Poor Judgment: Poor Assessment and Plan - Assessment (1) Schizoaffective disorder, bipolar type Code(s): F25.0 - Schizoaffective disorder, bipolar type Status: Acute - Plan Plan: October 23 19 Prior to the initiation of InVega sustena there is a need to observe the patient on a dosage of at least 6 mg a day of the oral form. I believe the patient has been on risperidone in the past but will attempt to verify October 24, 2018 patient can decision to continues to deteriorate, will increase dosage of neuroleptic. October 25, 2018 patient's vitals are stable, there are no evidence of response to neuroleptic medication, however the patient's increased dosage will be delayed. Justification for Continued Inpatient Stay: October 25, 2018 Patient remains psychotic and at risk for serious deterioration of the lower level of care.
[2018-10-25] MEDS: Melatonin 5 MG Tablet PO SCH (21:00)
[2018-10-26] MEDS: Senna/Docusate Sodium 8.6/50 MG Tablet PO SCH ×2 (08:02→20:22)
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
[2018-10-26] MEDS ORDERED: Paliperidone Inj 117 MG/0.75 ML Syringe IM SCH (11:00)
[2018-10-26] MEDS: Melatonin 5 MG Tablet PO SCH (22:23)
[2018-10-27] MEDS: Senna/Docusate Sodium 8.6/50 MG Tablet PO SCH ×2 (08:01→22:48)
--- NOTE | 2018-10-27 14:34 | P.PNPSY ---
Subjective Chief Complaint: Manic behavior and severely paranoid thought processing. Remarks: Patient was seen and case discussed with nursing. Per nursing, patient has been delusional throughout the day believing that other people are demons and she needs to protect them. She is religiously preoccupied. From my interview patient tries to minimize her symptoms and denies all these things during the interview. She was later seen preaching to other patients. She is compliant with her medications Review of Systems All other systems reviewed negative except as stated in HPI Mental Status Examination Appearance: Appropriate (No improvement) Consciousness: Alert, Vigilant Orientation: Person, Place Motor Activity: Normal gait Speech: Pressured (Mental status deteriorating rapidly.), Rapid (Patient shows increased rate of speech when angry.) Language: Adequate Fund of Knowledge: Adequate Attention and Concentration: Easily distracted Memory: Unremarkable Mood: Angry (Tightness of associations deteriorate with the patient's irritability), Oppositional (Refusing meds at times), Irritable Affect: Labile Thought Process & Associations: Loose associations Thought Content: Bizarre thinking (Paranoid ideas) Hallucination Type: None Delusion Type: Bizarre, Paranoid (Feel the nurses are not telling the truth about her behavior) Suicidal Ideation: No Suicidal Plan: No Suicidal Intention: No Homicidal Ideation: No Homicidal Plan: No Homicidal Intention: No Insight: Poor Judgment: Poor Assessment and Plan - Assessment (1) Schizoaffective disorder, bipolar type Code(s): F25.0 - Schizoaffective disorder, bipolar type Status: Acute - Plan Plan: Continue current treatment plan Justification for Continued Inpatient Stay: Patient would decompensate in a less restrictive setting
[2018-10-27] MEDS: Melatonin 5 MG Tablet PO SCH (21:48)
[2018-10-28] MEDS: Senna/Docusate Sodium 8.6/50 MG Tablet PO SCH ×2 (09:53→21:46)
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
[2018-10-28] MEDS: Melatonin 5 MG Tablet PO SCH (21:45)
[2018-10-29] MEDS: Senna/Docusate Sodium 8.6/50 MG Tablet PO SCH ×2 (08:10→20:29)
[2018-10-29] MEDS: Melatonin 5 MG Tablet PO SCH (20:29)
[2018-10-30] MEDS: Senna/Docusate Sodium 8.6/50 MG Tablet PO SCH ×2 (08:36→20:47)
[2018-10-30] MEDS ORDERED: Ibuprofen 600 MG Tablet PO PRN (09:11)
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
--- NOTE | 2018-10-30 09:33 | P.PNPSY ---
Subjective Chief Complaint: Manic behavior and severely paranoid thought processing. Remarks: October 30, 2018 Subjective: Patient is complaining today of a headache and problems with insomnia. Staff nurse reports that the patient only got 3-4 hours sleep through the night and today is complaining of a severe headache in the occipital area. Patient was interviewed with social welfare administrator who speaks her [place] language in the hopes that she would feel a little more comfortable. The first time I saw her she was extremely oppositional about taking her medications. I discussed with her the need to increase her Seroquel to 2 400 mg at bedtime. She has had some good results the first week of her hospitalization when she was taking the Seroquel, although there was never any real lasting improvement in her paranoia. We are now considering that the patient may be at baseline but uncertain as to the safety of discharge without a discharge plan that would incorporate the patient's observation by her son and those who know how to manage her paranoia. There is risk that patient would not be manageable and a setting with other patients without prison staff. Discharge planning will consult with the son and also patient placements regarding capability for managing the patient. Failing that, it is unlikely the patient will require state hospital referral. Review of Systems Patient is complaining of the severe occipital headache. I have prescribed 600 mg of Motrin. Mental Status Examination Appearance: Disheveled Consciousness: Alert, Vigilant Orientation: Person, Place Motor Activity: Normal gait Speech: Pressured (Mental status deteriorating rapidly.), Rapid (Patient shows increased rate of speech when angry.) Language: Adequate Fund of Knowledge: Adequate Attention and Concentration: Easily distracted Memory: Unremarkable Mood: Angry (Tightness of associations deteriorate with the patient's irritability), Oppositional (Refusing meds at times), Irritable Affect: Labile Thought Process & Associations: Loose associations Thought Content: Bizarre thinking (Paranoid ideas) Hallucination Type: None Delusion Type: Bizarre, Paranoid (Feel the nurses are not telling the truth about her behavior) Suicidal Ideation: No Suicidal Plan: No Suicidal Intention: No Homicidal Ideation: No Homicidal Plan: No Homicidal Intention: No Insight: Poor Judgment: Poor Assessment and Plan - Assessment (1) Schizoaffective disorder, bipolar type Code(s): F25.0 - Schizoaffective disorder, bipolar type Status: Acute - Plan Plan: Patient will be reevaluated by the attending psychiatrist. Continue with current treatment plan. Patient's p.o. Invega will be continued at 9 mg level and an injection the 10th Invega Sustenna will be given on November 02. Justification for Continued Inpatient Stay: October 30, 2018 serious risk for deterioration care possibility of referral to [facility] appears likely.
[2018-10-30] MEDS ORDERED: Haloperidol Inj 5 MG/ML Ampul IM PRN (11:00)
--- NOTE | 2018-10-30 13:36 | P.TTN ---
- Patient Problems Problems: 1. Discharge planning 2. Medication compliance 3. Knowledge deficit 4. Lack of coping skills - Progress Toward Goals Provider Present: Other (Per Dr. Ceja. Patient is refusing antipsychotic medication this morning. Dr. Ceja is moving toward having the patient on a long-acting injectable Invega Sustenna. Patient will attend [facility] again this week.) Provider Input: 10/30/18 Per MD Ceja pts progress is minimal. MD will adjust meds one more time. If pt gets better maybe we could d/c on if a strong d/c plan. Nurse Input: 10/30/18 Per Rn pt is been med compliant, no beh issues as off today. Psychiatric Counselors Present: Bull Ramos Jr., [facility] (Patient has agreed to an assisted living facility. [facility] is coming to evaluate the patient on Monday. All clinical information was faxed to [facility] yesterday.), Other Psychiatric Therapist Input: 10/30/18 Maried: Pt is doing a little better. Pt's son was contacted and he std pt cannot come live with him. Therapist to contact Amanda at [facility] for possible placement. Group Spec/RT/OT/BRIGGS Present: AMBAR Flores (Patient attends select groups and is redirectable.), BRIGITTE Dubose Group Spec/RT/OT/BRIGGS Input: 10/30/18 Pt has to be redirected sometimes during groups but goes back to her previous beh. - Documentation Teaching Recipient: Patient
[2018-10-30] MEDS: Melatonin 5 MG Tablet PO SCH (20:56)
[2018-10-31] MEDS: Senna/Docusate Sodium 8.6/50 MG Tablet PO SCH ×2 (08:10→20:43)
--- NOTE | 2018-10-31 12:22 | P.PNPSY ---
Subjective Chief Complaint: Manic behavior and severely paranoid thought processing. Remarks: October 31, 2018 Subjective: Patient again refused her Seroquel last p.m. was given an injection of Haldol which seemed to work very well for the patient but she is refusing to take the medication where there is injected her p.o., but now is agreeing to taking the Seroquel instead. The Haldol appears to have had a more Salvatori effect on the patient's than anything she is taken so far and would suggest that a second generation atypical might be in order and more effective at least in maintaining the patient's psychosis. I do believe the Seroquel has helped with management of her valerie but the paranoia has remained. Agree with her reviewer that Haldol added to her current medication should prove helpful. The patient is oppositional behaviors understandable in view medication changes she has endured. Since, she has little trust and continues a paranoid world view in addition for jessie delusions of paranoia I would anticipate that the patient would not be med compliant with much of anything that is given mouth. Starting from this point it would seems that rather than Invega Sustenna, Haldol and long-acting Haldol monthly injection would be a better plan. Review of Systems October 31, 2018 patient is in good mood today and does not complain of headache. Mental Status Examination Appearance: Disheveled Consciousness: Alert, Vigilant Orientation: Person, Place Motor Activity: Normal gait Speech: Pressured (Mental status deteriorating rapidly.), Rapid (Patient shows increased rate of speech when angry.) Language: Adequate Fund of Knowledge: Adequate Attention and Concentration: Easily distracted Memory: Unremarkable Mood: Oppositional (Refusing meds at times) Affect: Labile Thought Process & Associations: Goal directed Thought Content: Bizarre thinking (Paranoid ideas) Hallucination Type: None Delusion Type: Bizarre, Paranoid (Feel the nurses are not telling the truth about her behavior) Suicidal Ideation: No Suicidal Plan: No Suicidal Intention: No Homicidal Ideation: No Homicidal Plan: No Homicidal Intention: No Insight: Poor Judgment: Poor Assessment and Plan - Assessment (1) Schizoaffective disorder, bipolar type Code(s): F25.0 - Schizoaffective disorder, bipolar type Status: Acute - Plan Plan: October 31, 2018 It is hoped that the patient will respond to the increased doses of Seroquel at at bedtime. Given the response to Haldol I would prefer substituting the Haldol , but at this point patient is opposed to any medication changes. She has however agreed to take her Seroquel which she has regularly refused. Justification for Continued Inpatient Stay: October 31, 2018 patient with certainly deteriorated without compliance with her medication. This reason the use of monthly and injection of IM neuroleptic is indicated and until this is accomplished patient unlikely to be the hospital without decompensation.
[2018-10-31] MEDS: Melatonin 5 MG Tablet PO SCH (20:43)
[2018-11-01 06:03] VITALS: BP 116/73; PULSE 106; RESP 17; TEMP 97.3; O2SAT 93
[2018-11-01] MEDS: Senna/Docusate Sodium 8.6/50 MG Tablet PO SCH (08:27)
[2018-11-01] MEDS ORDERED: Paliperidone Inj 156 MG/ML Syringe IM ONE (12:00)
--- NOTE | 2018-11-01 12:47 | P.DSPSY ---
Psychiatry Discharge Summary Inpatient Psychiatric care?: Yes Advance Directives: No Mental Health Advance Directive: No Health Care Proxy: Yes - Admission Admission Date: October 09, 2018 20:00 Brief History: October 10, 2018 HPI Patient is a 14-year-old Palestinian female presented to [facility] with manic, disorganized thought construction and severe anxiety patient has had multiple hospitalizations scattered across [place], the most recent hospitalization at [place] was October of this year. At that time the patient presented with Demler symptoms and a history of noncompliance with her medication. It was impossible to determine the degree of compliance and type of medication patient is currently taking. She demonstrates tangential and scattered extremely over detailed information and is unable to give such a simple answer to questions as to what medications she is currently supposed to be taking. The patient has outpatient [employer] and and psychiatrist may be helpful in getting this up-to-date. 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 The patient had been taking Geodon 80 mg twice a day. Not clear whether this medication was given to the patient during her stay only that an EKG was done showing a right bundle branch block. The report of the EKG does not indicate the QT C interval. It is suspected that because of the right bundle branch block she was not restarted on Geodon. The indications are that she was started on Abilify. Corollary information is necessary for help and understanding the patient's compliance or lack thereof. Tobacco Use In Past 30 Days: No How Often Do You Have a Drink Containing Alcohol: Never Hospital Course: November 01, 2018 Hospital course patient has had a long and extremely bumpy course. She initially responded very well to Seroquel but began refusing the Seroquel. The paranoid has not truly responded to much of anything and the patient's willingness to cooperate and take her medications on an outpatient basis is certainly in question. For this reason she was started on Invega p.o. and a week ago was given the initial dosage of Invega Sustenna. Today the patient is to receive 156 mg of Invega Sustenna. The patient will receive a monthly dose of 156 mg until there is evidence of improvement. The patient's response thus far has been limited with the p.o. long-acting version. The patient's best response has been to a the 2 mg Haldol injection given this week when she refused her nighttime Seroquel. The patient's discharge may be delayed by the fact that there is no running water or electricity and her apartments. [facility] will be contacted to assure that the patient has adequate housing. - Discharge Discharge Date: 11/01/18 Discharge Disposition: Home - Discharge Instructions Discharge Diet: Regular Diet - Discharge Time > 30 minutes Mental Status Examination Appearance: Disheveled Consciousness: Alert, Vigilant Orientation: Person, Place Motor Activity: Normal gait Speech: Pressured (Mental status deteriorating rapidly.), Rapid (Patient shows increased rate of speech when angry.) Language: Adequate Fund of Knowledge: Adequate Attention and Concentration: Easily distracted Memory: Unremarkable Mood: Oppositional (Refusing meds at times) Affect: Labile Thought Process & Associations: Goal directed Thought Content: Bizarre thinking (Paranoid ideas) Hallucination Type: None Delusion Type: Bizarre, Paranoid (Feel the nurses are not telling the truth about her behavior) Suicidal Ideation: No Suicidal Plan: No Suicidal Intention: No Homicidal Ideation: No Homicidal Plan: No Homicidal Intention: No Insight: Poor Judgment: Poor Discharge/Advance Care Plan - Results Vital Signs: Last Vital Signs Temp 97.3 F L 11/01/18 06:00 Pulse 106 H 11/01/18 06:00 Resp 17 11/01/18 06:00 BP 116/73 11/01/18 06:00 Pulse Ox 93 L 11/01/18 06:00 Lab Results: Laboratory Results Hemoglobin A1c 6.6 % (4.3-6.0) H 10/10/18 06:08 Triglycerides 130 mg/dL (42-150) 10/10/18 06:08 Cholesterol 138 mg/dL (120-200) 10/10/18 06:08 LDL Cholesterol, Calc 69 mg/dL (0-99) 10/10/18 06:08 HDL Cholesterol 43.5 mg/dL (40.0-60.0) 10/10/18 06:08 Summary of Procedures: None Pending Results: None - Medications Number of antipsychotic medications at discharge: 3 - Discharge Care Plan Goals to Promote Your Health: * To prevent worsening of your condition and complications * To maintain your health at the optimal level Directions to Meet Your Goals: Take your medications as prescribed Follow your dietary instruction Follow activity as directed Keep your appointments as scheduled Take your immunizations and boosters as scheduled If your symptoms worsen call your PCP, if no PCP go to Urgent Care Center or Emergency Room For 15/05 questions related to your inpatient stay or results of tests pending at discharge, please contact Dr. Venkata Ceja MD at Smoking is Dangerous to Your Health. Avoid second hand smoking
[2018-11-02] MEDS ORDERED: Paliperidone Inj 156 MG/ML Syringe IM ONE (09:14)
== END 2018-11-01 14:05 | disposition home or self-care (01) | DRG 885 ==
LOC: H260 20:00 → H270 10-13 11:58
PROVIDERS: ADMIT Psychiatry & Neurology Child & Adolescent Psychiatry; ATTEND Psychiatry & Neurology Child & Adolescent Psychiatry
CPT/HCPCS: 80048; 80061; 83036; J1200; J1630; J2060; J2426; J3490; Q0163